=== PATIENT | male | born 1950 | race Caucasian/White ===

== ENCOUNTER 2022-08-19 15:12 | Outpatient (RCR) | payer MEDICARE, BC, SELFPAY ==
--- NOTE | 2022-08-19 18:03 | PT.OPEX ---
PT [facility] Eval PT [facility] Outpatient Eval Start: 08/19/22 12:30 Freq: Status: Active Protocol: Document 08/19/22 12:31 ENM (Rec: 08/19/22 16:11 ENM [id number]) E-signed By Leelee Astorga, DPT Physical Therapy Outpatient Evaluation Insurance Information Recert Due Date 11/11/22 Insurance Name Medicare B Medical Diagnosis unilateral primary osteoarthritis right knee presence of unspecified artificial knee joint right TKA DOS 09/02/2022 Treating Diagnosis right knee pain, impaired gait , impaired balance Referring MD Riddle Subjective Subjective Patient presents to PT for pre -operative evaluation prior to right TKA DOS 09/02/22 to be performed by . Patient is scheduled to start outpatient PT at [facility] on the . He had had knee pains for 10+ year with history of cortisone and knee injections. Knee pains vary between 3-4/10 and 7-8/10 . He stays active with biking 6-7 days week. 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 He plans to get his left knee done in the future as well. See pre-op flowsheet for additional information as to home set up. PMHx: R ankle fusion, previous L knee scope Pain Comments depends on the day 3-4/10 7-8/10 at its worse Current Work Status Retired Objective Other/Pertinent Objective Knee ROM L 0-2-110 R 0-0-108 hip ROM WFL strength: able to perform good SLR B hip flexors 5/5 B knee extensors: 4+/5 B ankle DF 5/5 B gait/balance: no overt gait deviations SLS able to hold 10s with mild difficulty bilaterally palpation/joint mobility: no significant tenderness to palpation of right knee musculature Assessment Assessment/Impression Patient is a 72 year old male presenting for pre op visit prior to R TKA on 09/02/22. He has a 10+ year history of right knee pain, plans to have his left knee done in the future as well. They will have support from their at home after surgery. Primary impairments noted on assessment were difficulty with SLS bilaterally, decreased knee ROM and right knee pain. Education was provided on use of AD, swelling management, exercises and expectations after surgery. Patient will be seen post operatively to reassess impairments that will be addressed with skilled care. Berto would greatly benefit from skilled PT to progress strength, ROM and ambulation for return to PLOF after knee replacement. Plan of Care Rehabilitation Potential Good Physical Therapy Goals After pre-op visit: ? Patient will be independent with HEP ? Patient will verbalize knowledge of stair navigation and proper sequencing ? Patient will have knowledge on home adaptations and use of assistive devices post operatively ? Patient will have knowledge of edema management Coordination/Communication With Referral Source Treatment Plan/Direct Interventions Gait Training,Manual Therapy, Neuromuscular Re-ed,Self-Care/ Home Management,Therapeutic Activities,Therapeutic Exercises Frequency/Duration 1x visit prior to surgery on . Patient scheduled to start outpatient PT in [place] s/p R TKA on 09/06. Has HEP to start with pre- operatively. Patient Will Be Discharged From Therapy Completion of LTG(s), Independent w/HEP Evaluation Billing Untimed Code Treatment Minutes 20 Complexity Low Certification Information Initial Certification Date 08/19/22 Ending Certification Date 11/11/22 Provider Signature Shows Agreement With POC & Medical Necessity Physician Signature & Date Requested Please Sign/Date Here Physician Comment/Change : Physician NPI Number #
== END 2023-03-03 23:59 | disposition home or self-care (01) ==
PROVIDERS: PCP Family Medicine; Visit Provider Orthopaedic Surgery
DX: M25.561 Pain in right knee (principal); R26.9 Unspecified abnormalities of gait and mobility; Z51.89 Encounter for other specified aftercare
CPT/HCPCS: 97110; 97161

== ENCOUNTER 2022-09-01 09:32 | Outpatient (CLI) | payer MEDICARE, BC, SELFPAY ==
[2022-09-01 14:20] LABS: SARS PCR* Negative SARS-CoV-2 (Negative)
== END 2022-09-01 09:33 | disposition home or self-care (01) ==
LOC: FBOREF 09:33
PROVIDERS: PCP Family Medicine; Visit Provider Orthopaedic Surgery
DX: Z20.822 Contact with and (suspected) exposure to COVID-19 (principal)
CPT/HCPCS: 87635

== ENCOUNTER 2022-09-10 08:36 | Day surgery (SDC) | payer MEDICARE, BC, SELFPAY ==
[2022-09-10] VITALS (25 sets, daily range): BP systolic 124–170; BP diastolic 61–98; PULSE 53–68; RESP 14–20; TEMP 36.1–36.8; O2SAT 93–99; BMI 36.1
[2022-09-10] MEDS: CEFAZOLIN 2 GM INJ IVP (08:38)
[2022-09-10] MEDS: SODIUM CHLORIDE 0.9 % (FLUSH) 10 ML SYRINGE IVF (08:50)
[2022-09-10] MEDS: LACTATED RINGERS 1000 ML 1,000 ML 100 ML IV ×2 (08:50→12:55)
[2022-09-10] MEDS: ACETAMINOPHEN 500 MG TABLET 1000 MG PO ×3 (09:00→20:24)
[2022-09-10] MEDS: CELECOXIB 200 MG CAPSULE PO ×2 (09:00→20:24)
[2022-09-10] MEDS: OXYCODONE (CR) 10 MG TAB.ER.12H PO (09:00)
[2022-09-10] MEDS: MIDAZOLAM HCL 1 MG/ML inj IVP (09:29)
[2022-09-10] MEDS: fentaNYL 100 MCG/2 ML inj IVP (09:29)
--- NOTE | 2022-09-10 09:43 | SUR.PREOP ---
TIME?OUT:?0927 PT/Lv MARIN RN/Alejandrina PAIGE, LAYLA?VERIFICATION?OF?SURGICAL?SITE,?PROCEDURE,?AND?CONSENT OBTAINED?PRIOR?TO?INVASIVE?PROCEDURE.
--- NOTE | 2022-09-10 11:42 | W.PM.NB ---
Nerve Block Nerve Block Time Seen by Provider: 09:20 Date Seen: 09/10/22 Type of block requested by surgeon for post-operative analgesia: adductor canal Side: right Time out performed: Yes Verification of patient name: Yes Verification of date of : Yes Site marking: site marked Name of person performing procedure: Alejandrina Colmenares CRNA Continuous monitoring Was continuous monitoring of O2 sat, B/P, cardiac monitor technician, recorded every 15 minutes?: Yes Procedure Checklist: sterile prep, needles and gloves Ultrasound guided. Images saved: Yes Medications given in 5ml increments after negative aspiration: Ropivicaine %: 0.5 mL: 20 Needle gauge: 20 Decadron (mg): 10 Precedex (mcg): 20 Patient tolerated procedure well: Yes Block Charges Block Charge (with Pro Fee): Femoral Nerve Use of Ultrasound Machine for Block: Yes- US Guidance/pain block
--- NOTE | 2022-09-10 12:01 | CRLHL7_ITS ---
For Patients: As a result of the Cures Act, medical imaging exams and procedure reports are released immediately into your electronic medical record. You may view this report before your referring provider. If you have questions, please contact your health care provider. INDICATION: Post right knee, Post operative total knee arthroplasty TECHNIQUE: Knee radiograph 2 views right COMPARISON: None FINDINGS: Bone: No acute fractures or aggressive bone lesions are identified. Joint: The patient is status post a total knee arthroplasty with patellar resurfacing. No significant knee effusion is seen. Soft tissue: Anterior swelling, subcutaneous gas and joint gas are present from recent surgery. No radiopaque foreign bodies are seen. IMPRESSION: 1. There is an unremarkable postoperative appearance of the knee arthroplasty. Dictated by: Jose Lopez MD @ 09/10/2022 13:28:50 (Electronically Signed)
--- NOTE | 2022-09-10 12:41 | W.ANESCHARGE ---
Anesthesia Charges Start Date/Time Anesthesia Start Date: 09/10/22 Anesthesia Start Time: 10:37 Stop Date/Time Anesthesia Stop Date: 09/10/22 Anesthesia Stop Time: 12:41 Summary Emergency: No Extremes of Age: Over 71-CPT [id number]
[2022-09-10] MEDS: HYDROmorphone 0.5 mg/0.5 ml inj IVP ×4 (15:15→22:37)
[2022-09-10] MEDS: OXYCODONE 5 MG TABLET PO ×3 (15:15→19:30)
[2022-09-10] MEDS: CEFAZOLIN 3 GM in 0.9 % SODIUM CHLORIDE 100 ml 100 ML IVPB ×2 (15:16→22:46)
--- NOTE | 2022-09-10 17:14 | P.IMCN_ITS ---
Date of Consult Patient: Najma Patient Consult date: 09/10/22 Requesting Physician: Orthopedics Primary Care Provider: Jackson Pink MD Consult Narrative Reason for consult: Postoperative support of hyperlipidemia, RICK Narrative: Berto Matthews is a 72 year old man who presents for an elective right total knee arthroplasty due to underlying severe, end-stage right knee osteoarthritis. Procedure undertaken uneventfully. No obvious immediate complications. Review of Systems Status of ROS: Reports: 10 or more systems reviewed and unremarkable except as noted in History and below Narrative: I reviewed his preoperative assessment dated 08/23/[address] Jackson Pink. Originally scheduled to undertake this surgery 1 week ago. His surgery was postponed until today. Has not taking any nonsteroidal anti-inflammatory medications now for 2 weeks. Has not had aspirin for 2 weeks. Denies chest heaviness, pressure, tightness, or pain. Denies dyspnea at rest, paroxysmal nocturnal dyspnea, orthopnea. Denies syncope or near-syncope. Denies cough, dyspnea at rest, paroxysmal nocturnal dyspnea, orthopnea. Denies palpitations or chest fluttering. Denies nausea vomiting. Denies lower extremity edema. Denies gastrointestinal or genitourinary concerns or problems. No recent trauma, injury, or travel. No recent febrile illness. Has tested negative for COVID-19 for 2 weeks in a row now. Indicates pain is well controlled at this juncture. [facility] Medical History (Updated 09/10/22 @ 17:25 by Vidal Uriarte MD) Hypercholesteremia Obstructive sleep apnea on CPAP Osteoarthritis Sleep apnea Surgical History (Updated 09/10/22 @ 17:25 by Vidal Uriarte MD) H/O arthroscopic knee surgery H/O elbow surgery (02/10/17) H/O elbow surgery (10/07/16) History of appendectomy Social History Smoking Status: Never smoker Do you use any of these nicotine containing products: None How often do you have a drink containing alcohol: 2-3 times a week Alcohol type: beer How many standard drinks containing alcohol do you have on a typical day: 1 or 2 AUDIT-C Alcohol total score: 3 Non-prescribed substance use: denies use Caffeine: Yes (coffee- 2 cups/day, diet coke 2-3 x/week) Meds Home Medications and Allergies Home Medications Medication Instructions Recorded Confirmed Type aspirin 81 mg tablet,delayed 162 mg PO DAILY 07/21/22 09/10/22 History release celecoxib 200 mg capsule 200 mg PO Q24H 07/21/22 09/10/22 History ezetimibe 10 mg tablet 10 mg PO DAILY 07/21/22 09/10/22 History fenofibrate 160 mg tablet 160 mg PO DAILY 07/21/22 09/10/22 History gabapentin 100 mg capsule 100 mg PO HS 07/21/22 09/10/22 History indomethacin 50 mg capsule 50 mg PO Q8H PRN 07/21/22 09/10/22 History calcium carbonate 500 mg-vitamin 1 tab PO DAILY 08/11/22 09/10/22 History D3 10 mcg (400 unit) tablet (Calcium 500 + D) lysine 500 mg tablet (L-Lysine) 500 mg PO BID 08/11/22 09/10/22 History Allergies Allergy/AdvReac Type Severity Reaction Status Date / Time atorvastatin Allergy Intermediate muscle Verified 09/10/22 09:04 aches Exam Narrative: Exam Narrative: Appears comfortable and in no acute distress. Alert, oriented to self, place, time, situation. Mood and affect are congruent. Friendly cooperative. Vision and hearing are grossly normal. Neck is supple. Midline trachea. Normal thyroid. No JVD, hepatojugular reflux, or carotid bruits. Lungs are clear to auscultation without wheezing, rhonchi, or rales. No CVA tenderness. Heart tones with regular rhythm, normal S1-S2, without murmur, gallop, rub. Abdomen with active bowel sounds, soft, nontender. No focal motor neurologic deficits. Const: Vital Signs, click to edit/add: Vital Signs - 24 hr 09/10/22 09:04 09/10/22 09:27 09/10/22 09:30 Temperature 97.9 F Pulse Rate 62 53 L 56 L Pulse Rate [Pulse Oximeter] Respiratory Rate 16 16 16 Blood Pressure 157/92 H 155/85 H 139/70 Blood Pressure [Le ft Arm] Pulse Oximetry 93 97 96 Oxygen Delivery Me thod Room Air Nasal Cannula Nasal Cannula Oxygen Flow Rate 2 2 09/10/22 09:35 09/10/22 12:41 09/10/22 12:55 Temperature 98.2 F Pulse Rate 57 L 63 58 L Pulse Rate [Pulse Oximeter] Respiratory Rate 14 16 16 Blood Pressure 137/65 134/64 136/69 Blood Pressure [Le ft Arm] Pulse Oximetry 96 97 99 Oxygen Delivery Me thod Nasal Cannula Nasal Cannula Nasal Cannula Oxygen Flow Rate 2 2 2 09/10/22 12:45 09/10/22 12:50 09/10/22 13:00 Temperature Pulse Rate 60 60 58 L Pulse Rate [Pulse Oximeter] Respiratory Rate 16 16 16 Blood Pressure 140/69 H 133/68 131/70 Blood Pressure [Le ft Arm] Pulse Oximetry 98 99 96 Oxygen Delivery Me thod Nasal Cannula Nasal Cannula Room Air Oxygen Flow Rate 2 2 09/10/22 13:05 09/10/22 13:09 09/10/22 13:20 Temperature 97.4 F L 97.4 F L 96.9 F L Pulse Rate 62 60 53 L Pulse Rate [Pulse Oximeter] Respiratory Rate 16 16 18 Blood Pressure 136/70 131/68 Blood Pressure [Le ft Arm] 125/61 Pulse Oximetry 94 94 Oxygen Delivery Me thod Room Air Room Air Room Air Oxygen Flow Rate 09/10/22 13:30 09/10/22 13:45 09/10/22 14:00 Temperature 96.9 F L 96.9 F L 97.1 F L Pulse Rate Pulse Rate [Pulse Oximeter] 54 L 55 L 57 L Respiratory Rate 18 16 16 Blood Pressure Blood Pressure [Le ft Arm] 125/67 124/98 H 152/70 H Pulse Oximetry 95 96 98 Oxygen Delivery Me thod Room Air Room Air Room Air Oxygen Flow Rate 09/10/22 14:15 09/10/22 15:52 09/10/22 14:45 Temperature 97.1 F L 97.5 F L Pulse Rate Pulse Rate [Pulse Oximeter] 58 L 62 Respiratory Rate 18 18 Blood Pressure Blood Pressure [Le ft Arm] 130/66 136/85 Pulse Oximetry 96 95 95 Oxygen Delivery Me thod Room Air Room Air Oxygen Flow Rate 09/10/22 15:15 Temperature 97.5 F L Pulse Rate Pulse Rate [Pulse Oximeter] 67 Respiratory Rate 18 Blood Pressure Blood Pressure [Le ft Arm] 140/76 H Pulse Oximetry 96 Oxygen Delivery Me thod Room Air Oxygen Flow Rate Documenting provider has reviewed patient's vital signs: yes Assessment and Plan Assessment and plan (1) Osteoarthritis of right knee: Problem comment: End-stage (grade 4) right knee tricompartmental osteoarthritis Status: Chronic (2) Status post right knee replacement: Status: Acute (3) Obstructive sleep apnea on CPAP: Status: Acute Plan 1. Reviewed impression with patient and . 2. Answered questions to their satisfaction. 3. Continue with CPAP at at bedtime while in hospital. 4. Agree with venous thromboembolism prophylaxis. 5. Agree with perioperative antibiotic prophylaxis. 6. Continue with supportive medications. 7. No medical contraindication for patient to be discharged home when Orthopedic surgery determines he is ready to be discharged. 8. Please let hospitalist team know if we can help in any other way.
--- NOTE | 2022-09-10 17:30 | PC.NURSE ---
Shift Summary: Patient arrived from PACU around 1320. Vitals stable, BP has increased along with pain, managed with PRN medication and cryocuff. Patient has yet to be up out of bed, denied need for bathroom. Tolerating regular diet well, denies nausea. Pain 6-910. Dressing over right knee dry and intact. Maintaining o2 sats >90% on RA.
--- NOTE | 2022-09-10 19:05 | P.ORPRC_ITS ---
Procedure Note Date of procedure: 09/10/22 Procedure: PREOPERATIVE DIAGNOSIS: Right knee osteoarthritis POSTOPERATIVE DIAGNOSIS: Right knee osteoarthritis NAME OF OPERATION: Right total knee arthroplasty SURGEON: Andrade Riddle MD LOCAL DRIVER: KETAN Packer ANESTHESIA: Spinal ESTIMATED BLOOD LOSS: 0 mL COMPLICATIONS: None SPECIMENS: None DRAINS: None PREOPERATIVE ANTIBIOTICS: Ancef 3 grams IMPLANTS: 1. J&J Attune #7 posterior stabilized femur 2. #8 fixed-bearing tibia 3. #7 posterior stabilized, 5 mm fixed-bearing polyethylene 4. 41 patella INDICATIONS: The patient is a 72-year-old with a longstanding history of severe, unrelenting right knee pain secondary to end-stage (grade IV) right knee osteoarthritis. Despite appropriate nonoperative management, including activity modification, anti-inflammatories, vspt-wfi-talpuyo pain medication, bracing, physical therapy, and injections they continue to have pain and disability. Operative intervention was offered. The risks, benefits and expected outcomes were discussed in detail. These included but were not limited to: Infection, bleeding, injury to blood vessel or nerve, venous thromboembolism. All questions were answered to their satisfaction. Use of an nursing home assistant administrator was necessary throughout the case for patient positioning and safety, soft tissue retraction, and closure. PROCEDURE: Spinal anesthesia was administered. The patient was placed supine on the operating table. The nursing home assistant administrator made sure the patient was positioned appropriately. The lower extremity was prepped and draped in the usual sterile fashion. The limb was exsanguinated with the Franck bandage. The pneumatic tourniquet was inflated to 300 mmHg. A standard anterior incision was made with the knee in flexion. Subcutaneous dissection was sharply taken through fascial layer #1. Full-thickness medial and lateral flaps were elevated. The nursing home assistant administrator retracted the soft tissues and protected them throughout the case. A standard medial parapatellar approach was made. The patella was everted. The infrapatellar fat pad was preserved. The menisci and cruciate ligaments were sharply d?brided. Marginal osteophytes were d?brided with the rongeur. The drill was used to penetrate the femoral canal. The canal was aspirated and irrigated with pulse lavage. The intramedullary femoral guide was placed for a 5-degree valgus cut, removing 10 mm off the distal femur. The saw was used to make the cut. Whitesides line and the trans epicondylar axis were marked. The femoral sizing guide was pinned onto the distal femur. Three degrees of external rotation nicely parallels the transepicondylar axis. Pins were placed for posterior referencing. The four-in-one cutting guide was pinned onto the distal femur. The anterior, posterior, and chamfer cuts were made. The nursing home assistant administrator protected the collateral ligaments. The box cutting guide was pinned. The box cuts were made. The boxed trial was placed and was an excellent fit. Drill holes for the lugs were made. Attention was then turned to the proximal tibia. The extramedullary tibial guide was placed for a neutral varus/valgus cut with 5 degrees of posterior slope, removing 2 mm based off the medial tibial surface. The nursing home assistant administrator protected the collateral ligaments and the neurovascular bundle. The saw was used to make the cut. Trial components were placed. The knee was nicely balanced in both flexion and extension. The trial components were removed. The tray was placed in appropriate rotation, parallel to our tibial cutting pins. It was pinned by the nursing home assistant administrator and the drill and the punch were used. The tray was removed. The punch was used again. We placed a bone plug in the femoral canal. Attention was then turned to the patella. [place] patellar thickness was 24 mm. The lobster claw resection guide was used with the 9.5 mm celine. The saw was used to make the cut. Drill holes were made by the nursing home assistant administrator. The trial was placed and was an excellent fit. Cancellous surfaces were irrigated with pulse lavage and thoroughly dried by the nursing home assistant administrator. We cemented the tibial component, then the femoral component. We impacted the 5 mm polyethylene onto the tibial tray. The knee was brought into full extension. We then cemented the patellar component. Excessive cement was removed. The cement was allowed to harden. The knee was taken through a range of motion and was found to be nicely balanced in both flexion and extension. The patella tracks centrally. The nursing home assistant administrator did a three minute dilute Betadine solution soak. The nursing home assistant administrator irrigated the wound with 3 liters of normal saline via pulse lavage. The nursing home assistant administrator reapproximated the extensor mechanism with #1 Vicryl in an interrupted [id number]-ch-lgolh fashion. The nursing home assistant administrator then ran the extensor mechanism with a #1 PDO Stratafix. The nursing home assistant administrator closed the subcutaneous tissues with a 3-0 Stratafix and the skin with a running 3-0 Stratafix in a subcuticular fashion. Glue was used to seal the skin. The nursing home assistant administrator placed a dry dressing, SIMON stocking, and Polar Care. Sponge and needle counts were correct x2. The patient tolerated the procedure well. There were no apparent complications. They were carefully transferred to the hospital bed and taken to the postanesthesia care unit in satisfactory condition. PLAN: The patient will be mobilized with physical therapy. Aspirin will be used for DVT prophylaxis. They will be discharged to home once medically appropriate.
[2022-09-10] MEDS: GABAPENTIN 100 MG CAPSULE PO (20:23)
[2022-09-10] MEDS: ASPIRIN 81 MG TABLET EC PO (20:25)
[2022-09-10] MEDS: SENNOSIDES 1 TAB TABLET 2 TAB PO (20:25)
[2022-09-11 03:00] VITALS: BP 166/83; PULSE 62; RESP 18; TEMP 36.6; O2SAT 93
[2022-09-11] MEDS: HYDROmorphone 0.5 mg/0.5 ml inj IVP ×2 (03:02→08:07)
[2022-09-11] MEDS: ACETAMINOPHEN 500 MG TABLET 1000 MG PO ×2 (03:07→09:35)
--- NOTE | 2022-09-11 06:12 | PC.NURSE ---
VSS on RA. Patient is alert and oriented x3. Patient had pain throughout this shift. Pt consistently rated pain as 8-9/10. Per pt, Oxycodone is not helping him at all. Only Dilaudid that is somewhat effective. Pt is continent of bowel and bladder, using urinal at bedside. Requires assist of one with transfers. Pt appears stable, call light within reach. Will call appropriately.
[2022-09-11] MEDS: CEFAZOLIN 3 GM in 0.9 % SODIUM CHLORIDE 100 ml 100 ML IVPB (07:08)
[2022-09-11] MEDS: OXYCODONE 5 MG TABLET PO ×2 (07:08→11:02)
[2022-09-11 07:21] LABS: Basophils Percent Auto 0.1 % (0.0-3.0); Eosinophils Percent Auto 0.1 % (0.0-7.0); Hematocrit 40.2 % (37.0-53.0); Hemoglobin* 13.7 gm/dL (13.5-17.5); Immature Granulocytes Pct Auto 0.3 %; Lymphocytes Percent Auto 7.8 % (20-44); Mean Corpuscular HGB Conc 34 gm/dL (32-36); Mean Corpuscular Hemoglobin 32 pg (26-34); Mean Corpuscular Volume 93 fL (80-100); Monocytes Percent Auto 9.7 % (0.0-11.0); Platelet Count* 216 K/uL (140-440); RDW Coefficient of Variation % 12.8 % (11.5-15.5); Red Blood Count 4.31 m/uL (4.30-5.90)
[2022-09-11 07:29] LABS: Slide Review Reflex No
[2022-09-11 07:35] LABS: Potassium* 4.1 mmol/L (3.6-5.1); Sodium* 136 mmol/L (135-149)
[2022-09-11 07:36] LABS: INR 1.07 (0.91-1.10); Prothrombin Time 14.5 Seconds
[2022-09-11 07:38] LABS: Blood Urea Nitrogen* 24 mg/dL (7-30); Creatinine* 0.8 mg/dL (0.5-1.5); Est. Creatinine Clearance* 74.37; Estimated Glomerular Filt Rate 95 ml/min
[2022-09-11 08:13] VITALS: O2SAT 96
[2022-09-11 08:14] VITALS: BP 160/77; PULSE 61; RESP 18; TEMP 36.4; O2SAT 96
[2022-09-11] MEDS: CELECOXIB 200 MG CAPSULE PO (09:34)
[2022-09-11] MEDS: SENNOSIDES 1 TAB TABLET 2 TAB PO (09:34)
[2022-09-11] MEDS: FENOFIBRATE 145 MG TABLET PO (09:36)
[2022-09-11] MEDS: EZETIMIBE 10 MG TABLET PO (09:36)
[2022-09-11] MEDS: ASPIRIN 81 MG TABLET EC PO (09:36)
--- NOTE | 2022-09-11 11:48 | P.ORPN_ITS ---
Subjective Subjective Time Seen by Provider: 11:48 Date Seen: 09/11/22 Principal diagnosis: Status post right knee replacement Interval history: Berto is comfortable at the moment. He is dressed and ready to discharge to home. He has had flares of pain since surgery. He has had oxycodone after previous surgeries and works well for him. Will continue this for at home use. He has stool softener at home, Tylenol at home. Ortho Exam Narrative Exam Narrative: Alert and oriented x3. Patient is in no acute distress. Converses without la bored breathing. Hearing is grossly intact. Ambulates with a walker. Examination the right lower extremity shows bilateral calves are soft and nontender. CMS intact right lower extremity. Dressing is intact. Mild effusion. Mild soft tissue edema about the knee. Const Vital Signs, click to edit/add: Vital Signs - 24 hr 09/10/22 12:41 09/10/22 12:55 09/10/22 12:45 Temperature 98.2 F Pulse Rate 63 58 L 60 Pulse Rate [Pulse Oximeter] Respiratory Rate 16 16 16 Blood Pressure 134/64 136/69 140/69 H Blood Pressure [Left Arm] Pulse Oximetry 97 99 98 Oxygen Delivery Method Nasal Cannula Nasal Cannula Nasal Cannula Oxygen Flow Rate 2 2 2 09/10/22 12:50 09/10/22 13:00 09/10/22 13:05 Temperature 97.4 F L Pulse Rate 60 58 L 62 Pulse Rate [Pulse Oximeter] Respiratory Rate 16 16 16 Blood Pressure 133/68 131/70 136/70 Blood Pressure [Left Arm] Pulse Oximetry 99 96 94 Oxygen Delivery Method Nasal Cannula Room Air Room Air Oxygen Flow Rate 2 09/10/22 13:09 09/10/22 13:20 09/10/22 13:30 Temperature 97.4 F L 96.9 F L 96.9 F L Pulse Rate 60 53 L Pulse Rate [Pulse Oximeter] 54 L Respiratory Rate 16 18 18 Blood Pressure 131/68 Blood Pressure [Left Arm] 125/61 125/67 Pulse Oximetry 94 95 Oxygen Delivery Method Room Air Room Air Room Air Oxygen Flow Rate 09/10/22 13:45 09/10/22 14:00 09/10/22 14:15 Temperature 96.9 F L 97.1 F L 97.1 F L Pulse Rate Pulse Rate [Pulse Oximeter] 55 L 57 L 58 L Respiratory Rate 16 16 18 Blood Pressure Blood Pressure [Left Arm] 124/98 H 152/70 H 130/66 Pulse Oximetry 96 98 96 Oxygen Delivery Method Room Air Room Air Room Air Oxygen Flow Rate 09/10/22 15:52 09/10/22 14:45 09/10/22 15:15 Temperature 97.5 F L 97.5 F L Pulse Rate Pulse Rate [Pulse Oximeter] 62 67 Respiratory Rate 18 18 Blood Pressure Blood Pressure [Left Arm] 136/85 140/76 H Pulse Oximetry 95 95 96 Oxygen Delivery Method Room Air Room Air Oxygen Flow Rate 09/10/22 16:00 09/10/22 17:00 09/10/22 18:00 Temperature 97.4 F L 97.4 F L 97.3 F L Pulse Rate Pulse Rate [Pulse Oximeter] 65 67 68 Respiratory Rate 20 20 18 Blood Pressure Blood Pressure [Left Arm] 162/82 H 170/81 H 167/81 H Pulse Oximetry 94 94 94 Oxygen Delivery Method Room Air Room Air Room Air Oxygen Flow Rate 09/10/22 19:34 09/10/22 19:00 09/10/22 23:00 Temperature 97.6 F 97.6 F 97.5 F L Pulse Rate Pulse Rate [Pulse Oximeter] 66 66 64 Respiratory Rate 18 18 18 Blood Pressure Blood Pressure [Left Arm] 146/66 H 141/66 H 166/77 H Pulse Oximetry 94 94 93 Oxygen Delivery Method Room Air Room Air Room Air Oxygen Flow Rate 09/10/22 23:00 09/10/22 23:00 09/11/22 03:00 Temperature 97.9 F Pulse Rate Pulse Rate [Pulse Oximeter] 64 62 Respiratory Rate 18 18 Blood Pressure Blood Pressure [Left Arm] 166/83 H Pulse Oximetry 94 93 Oxygen Delivery Method Room Air CPAP Oxygen Flow Rate 09/11/22 08:13 09/11/22 08:14 Temperature 97.6 F Pulse Rate Pulse Rate [Pulse Oximeter] 61 Respiratory Rate 18 Blood Pressure Blood Pressure [Left Arm] 160/77 H Pulse Oximetry 96 96 Oxygen Delivery Method Room Air Oxygen Flow Rate Assessment and Plan Assessment and plan (1) Osteoarthritis of right knee: Problem details: End-stage (grade 4) right knee tricompartmental osteoarthritis Status: Chronic (2) Status post right knee replacement: Problem details: 09/10/2022 Status: Acute Assessment and Plan: Plan for discharge is today to home if they meet discharge criteria. DVT prophylaxis includes aspirin 81 mg twice daily x1 month, Anjel stockings x1 month may remove for 1 hr per day, frequent ambulation Remove dressing in 1 week. Observe wound and phone Orthopedics with any questions or concerns Return to clinic in 1 week for a wound check Return to clinic in [address] Riddle Minimize narcotic use. Wean off and discontinue soon as possible. Activities as tolerated. No strenuous activity. Outpatient physical therapy as scheduled. Ice and elevate the operative extremity. No restriction on ice. (3) Obstructive sleep apnea on CPAP: Status: Acute
[2022-09-11 12:37] VITALS: BP 131/68; PULSE 53; RESP 18; TEMP 36.4
== END 2022-09-11 12:30 | disposition home or self-care (01) ==
LOC: OR 08:38 → MEDSURG 08:52
PROVIDERS: PCP Family Medicine; Visit Provider Orthopaedic Surgery
PROC: (CPT 27447; principal; 2022-09-10 10:15)
DX: M17.11 Unilateral primary osteoarthritis, right knee (principal); G89.18 Other acute postprocedural pain; M25.561 Pain in right knee; G47.33 Obstructive sleep apnea (adult) (pediatric); Z99.89 Dependence on other enabling machines and devices; E78.5 Hyperlipidemia, unspecified
CPT/HCPCS: 27447; 01402; 36415; 64447; 73560; 76942; 82565; 84132; 84295; 84520; 85025; 85610; 97110; 97116; 97161; 97165; 97530; 97535; 99100; A9270; C1776; J0690; J1100; J1170; J2250; J2405; J2704; J2795; J3010; J7120

== ENCOUNTER 2022-09-12 18:48 | Emergency (ER) | payer MEDICARE, BC, SELFPAY ==
[2022-09-12 18:50] VITALS: BP 163/77; PULSE 72; RESP 14; TEMP 37.1; O2SAT 93; BMI 35.3
--- NOTE | 2022-09-12 18:55 | ED.GENADULT ---
HPI - General Adult General Time Seen by Provider: 18:56 Date Seen: 09/12/22 Chief complaint: Post Op Complication Stated complaint: post op right knee pain Time Seen by Provider: 09/12/22 18:55 Source: patient, family and old records reviewed Mode of arrival: ambulatory Limitations: no limitations History of Present Illness HPI narrative: 72-year-old male who is postop day 2 status post right total knee replacement, presents with knee pain. Patient went home yesterday Related Data Home Medications Medication Instructions Recorded Confirmed aspirin 81 mg tablet,delayed 162 mg PO DAILY 07/21/22 09/10/22 release ezetimibe 10 mg tablet 10 mg PO DAILY 07/21/22 09/10/22 fenofibrate 160 mg tablet 160 mg PO DAILY 07/21/22 09/10/22 gabapentin 100 mg capsule 100 mg PO HS 07/21/22 09/10/22 indomethacin 50 mg capsule 50 mg PO Q8H PRN 07/21/22 09/10/22 calcium carbonate 500 mg-vitamin 1 tab PO DAILY 08/11/22 09/10/22 D3 10 mcg (400 unit) tablet (Calcium 500 + D) lysine 500 mg tablet (L-Lysine) 500 mg PO BID 08/11/22 09/10/22 Previous Rx's Medication Instructions Recorded aspirin 81 mg chewable tablet 81 mg PO BID for DVT prophylaxis 09/11/22 (Aspirin Childrens) 30 days #60 tabs oxycodone 5 mg tablet 2.5 - 5 mg PO Q4-6H PRN Pain #42 09/11/22 tabs Allergies Allergy/AdvReac Type Severity Reaction Status Date / Time atorvastatin Allergy Intermediate muscle Verified 09/10/22 09:04 aches PFSH PFSH Medical History (Updated 09/10/22 @ 17:25 by Vidal Uriarte MD) Hypercholesteremia Obstructive sleep apnea on CPAP Osteoarthritis Sleep apnea Surgical History (Updated 09/11/22 @ 11:50 by Mary Anne Flores PA-C) H/O arthroscopic knee surgery H/O elbow surgery (02/10/17) H/O elbow surgery (10/07/16) History of appendectomy Social History Smoking Status: Never smoker Do you use any of these nicotine containing products: None How often do you have a drink containing alcohol: 2-3 times a week Alcohol type: beer How many standard drinks containing alcohol do you have on a typical day: 1 or 2 AUDIT-C Alcohol total score: 3 Non-prescribed substance use: denies use Caffeine: Yes (coffee- 2 cups/day, diet coke 2-3 x/week) Discharge Plan Discharge Prescriptions: No Action ezetimibe 10 mg tablet 10 mg PO DAILY Label Comments: TAKE ONE TABLET BY MOUTH EVERY DAY fenofibrate 160 mg tablet 160 mg PO DAILY Label Comments: TAKE ONE TABLET BY MOUTH EVERY DAY WITH A MEAL aspirin 81 mg tablet,delayed release (DR/EC) 162 mg PO DAILY Hold Instructions: Resume on 10/12/22. Hold while taking aspirin per the orthopedic surgeon instructions for the next month. indomethacin 50 mg capsule 50 mg PO Q8H PRN Label Comments: TAKE ONE CAPSULE BY MOUTH EVERY 8 HOURS NEEDED FOR PAIN gabapentin 100 mg capsule 100 mg PO HS Label Comments: TAKE ONE CAPSULE BY MOUTH AT BEDTIME lysine [L-Lysine] 500 mg tablet 500 mg PO BID calcium carbonate-vitamin D3 [Calcium 500 + D] 500 mg-10 mcg (400 unit) tablet 1 tab PO DAILY oxycodone 5 mg Tablet 2.5 - 5 mg PO Q4-6H MDD 6 tabs per day PRN (Reason: Pain) Qty: 42 0RF Rx Instructions: Minimize. Discontinue as soon as possible aspirin [Aspirin Childrens] 81 mg tablet,chewable 81 mg PO BID 30 Days Qty: 60 0RF Follow Up/Referrals: Jackson Pink MD [Primary Care Provider] -
--- NOTE | 2022-09-12 19:14 | CRLHL7_ITS ---
For Patients: As a result of the Cures Act, medical imaging exams and procedure reports are released immediately into your electronic medical record. You may view this report before your referring provider. If you have questions, please contact your health care provider. Indication: Postop pain Technique: Two views right knee Comparison: X-rays 09/10/2022 Findings: Right knee arthroplasty in satisfactory position anterior postoperative soft tissue fluid and edema. Probable small effusion. No acute fractures or acute osseous abnormalities. Dictated by Deloris Edwards MD @ 09/12/2022 7:54:26 PM (Electronically Signed)
[2022-09-12 19:53] VITALS: BP 134/78; PULSE 72; RESP 14; O2SAT 96
--- NOTE | 2022-09-12 20:17 | ED_ITS ---
HPI - General Adult General Date Seen: 09/12/22 Chief complaint: Post Op Complication Stated complaint: post op right knee pain Time Seen by Provider: 09/12/22 18:55 Source: patient and EMS Mode of arrival: EMS Limitations: no limitations History of Present Illness HPI narrative: Patient is 72-year-old gentleman who presents here with acute postoperative knee pain. He notes that the pain came on after he was doing quite well at home, he was discharged from the hospital yesterday, he had an uneventful right total knee arthroplasty done, says the block wore off in approximately 4 hours. He then has been taking oxycodone. He went today to do some exercises, that they had instructed with him, noted pain and just above his knee, that was the worst pain of his life. The paramedics arrived, they gave him 1 mg IV of Dilaudid, his pain went away promptly. He came to the emergency department for further assessment. Denies any fevers chills or sweats there is no history of falls or injury. Denies any numbness tingling or weakness. Related Data Home Medications Medication Instructions Recorded Confirmed aspirin 81 mg tablet,delayed 162 mg PO DAILY 07/21/22 09/10/22 release ezetimibe 10 mg tablet 10 mg PO DAILY 07/21/22 09/10/22 fenofibrate 160 mg tablet 160 mg PO DAILY 07/21/22 09/10/22 gabapentin 100 mg capsule 100 mg PO HS 07/21/22 09/10/22 indomethacin 50 mg capsule 50 mg PO Q8H PRN 07/21/22 09/10/22 calcium carbonate 500 mg-vitamin 1 tab PO DAILY 08/11/22 09/10/22 D3 10 mcg (400 unit) tablet (Calcium 500 + D) lysine 500 mg tablet (L-Lysine) 500 mg PO BID 08/11/22 09/10/22 Previous Rx's Medication Instructions Recorded aspirin 81 mg chewable tablet 81 mg PO BID for DVT prophylaxis 09/11/22 (Aspirin Childrens) 30 days #60 tabs oxycodone 5 mg tablet 2.5 - 5 mg PO Q4-6H PRN Pain #42 09/11/22 tabs Allergies Allergy/AdvReac Type Severity Reaction Status Date / Time atorvastatin Allergy Intermediate muscle Verified 09/10/22 09:04 aches Review of Systems Status of ROS: Reports: 10 or more systems reviewed and unremarkable except as noted in History and below PFSH PFS Medical History Hypercholesteremia Obstructive sleep apnea on CPAP Osteoarthritis Sleep apnea Surgical History H/O arthroscopic knee surgery H/O elbow surgery (02/10/17) H/O elbow surgery (10/07/16) History of appendectomy Social History Smoking Status: Never smoker Do you use any of these nicotine containing products: None How often do you have a drink containing alcohol: 2-3 times a week Alcohol type: beer How many standard drinks containing alcohol do you have on a typical day: 1 or 2 AUDIT-C Alcohol total score: 3 Non-prescribed substance use: denies use Caffeine: Yes (coffee- 2 cups/day, diet coke 2-3 x/week) Exam Narrative: Exam Narrative: On examination his right knee is swollen, which is not atypical or expected after he has had a knee arthroplasty. He still has the bandage across his knee, he has range of motion from approximately 10? to 30?. Without pain. The lower leg shows a bruising, notable and normal after surgery. His DP and posterior tibial pulses are very palpable in his right knee leg. He is warm, as is his leg. Const: Vital Signs, click to edit/add: Vital Signs - 24 hr 09/12/22 18:50 Temperature 98.7 F Pulse Rate [Pulse Oximeter] 72 Respiratory Rate 14 Blood Pressure [Ri ght Upper Arm] 163/77 H Pulse Oximetry 93 Oxygen Delivery Me thod Room Air Documenting provider has reviewed patient's vital signs: yes Course Course Hospital Course: I spoke to the patient along with the orthopedic PA was familiar with the case. She talked to the patient on the phone, I think more regular pain medication, can avoid this spasm, I see no internal issue occur associated with knee, I do not think this is infection, I do not think this is clot, and I think given the fact he is back to baseline now, has to do with the pain. I think we can discharge him home at this point, Vital Signs Vital signs: Initial Vital Signs Temperature 98.7 F 09/12/22 18:50 Temperature Source Temporal Artery Scan 09/12/22 18:50 Pulse Rate 72 09/12/22 18:50 Pulse Rhythm 09/12/22 18:50 Respiratory Rate 14 09/12/22 18:50 Blood Pressure 163/77 H 09/12/22 18:50 Blood Pressure Mean 105 09/12/22 18:50 Blood Pressure Position Supine 09/12/22 18:50 Pulse Oximetry 93 09/12/22 18:50 Oxygen Delivery Method 09/12/22 18:50 Vital Signs Temperature 98.7 F 09/12/22 18:50 Pulse Rate 72 09/12/22 18:50 Respiratory Rate 14 09/12/22 18:50 Blood Pressure 163/77 H 09/12/22 18:50 Pulse Oximetry 93 09/12/22 18:50 Oxygen Delivery Method 09/12/22 18:50 Temperature 98.7 F 09/12/22 18:50 Pulse Rate 72 09/12/22 18:50 Respiratory Rate 14 09/12/22 18:50 Blood Pressure 163/77 H 09/12/22 18:50 Pulse Oximetry 93 09/12/22 18:50 Oxygen Delivery Method 09/12/22 18:50 Discharge Plan Discharge Clinical Impression: Acute postoperative pain of right knee Patient Disposition: Home w/ Parent or Adult Condition: Stable Instructions: Pain Management (ED), Narcotic Safety (ED), Knee Pain (ED), Opioid Safety (ED), Pain Management After Surgery (DC) Additional Instructions: Take the oxycodone regularly, please use other medications as directed, usual cooling apparatus if you do indeed have one. I do not see any obvious issues associated with knee surgery, I believe you having postoperative muscle spasm. Prescriptions: No Action ezetimibe 10 mg tablet 10 mg PO DAILY Label Comments: TAKE ONE TABLET BY MOUTH EVERY DAY fenofibrate 160 mg tablet 160 mg PO DAILY Label Comments: TAKE ONE TABLET BY MOUTH EVERY DAY WITH A MEAL aspirin 81 mg tablet,delayed release (DR/EC) 162 mg PO DAILY Hold Instructions: Resume on 10/12/22. Hold while taking aspirin per the orthopedic surgeon instructions for the next month. indomethacin 50 mg capsule 50 mg PO Q8H PRN Label Comments: TAKE ONE CAPSULE BY MOUTH EVERY 8 HOURS NEEDED FOR PAIN gabapentin 100 mg capsule 100 mg PO HS Label Comments: TAKE ONE CAPSULE BY MOUTH AT BEDTIME lysine [L-Lysine] 500 mg tablet 500 mg PO BID calcium carbonate-vitamin D3 [Calcium 500 + D] 500 mg-10 mcg (400 unit) tablet 1 tab PO DAILY oxycodone 5 mg Tablet 2.5 - 5 mg PO Q4-6H MDD 6 tabs per day PRN (Reason: Pain) Qty: 42 0RF Rx Instructions: Minimize. Discontinue as soon as possible aspirin [Aspirin Childrens] 81 mg tablet,chewable 81 mg PO BID 30 Days Qty: 60 0RF Follow Up/Referrals: Jackson Pink MD [Primary Care Provider] - Stand Alone Forms: [employer] Info Instructions
[2022-09-12] MEDS: HYDROmorphone 0.5 mg/0.5 ml inj IVP (20:46)
[2022-09-12 20:57] VITALS: BP 141/74; PULSE 72; RESP 14; TEMP 37.1
== END 2022-09-12 20:50 | disposition home or self-care (01) ==
PROVIDERS: Emergency Provider Family Medicine; PCP Family Medicine
DX: G89.18 Other acute postprocedural pain (principal); Z96.651 Presence of right artificial knee joint
CPT/HCPCS: 73560; 96374; 99283; J1170

== ENCOUNTER 2022-09-15 09:54 | Outpatient (CLI) | payer MEDICARE, BC, SELFPAY ==
--- NOTE | 2022-09-15 10:15 | CRLHL7_ITS ---
For Patients: As a result of the Cures Act, medical imaging exams and procedure reports are released immediately into your electronic medical record. You may view this report before your referring provider. If you have questions, please contact your health care provider. INDICATION: Right calf pain and swelling. Right TKA 09/10/2022. COMPARISON: None available. FINDINGS: Ultrasound of the venous drainage of the right lower extremity shows no evidence of deep venous thrombosis. There is normal antegrade flow from the posterior tibial and popliteal veins superiorly through the common femoral vein. There is normal augmentation and compressibility of these veins. The left common femoral vein is widely patent. IMPRESSION: No evidence of right lower extremity deep venous thrombosis. Dictated by Atilio Roth MD @ 09/15/2022 10:45:21 AM (Electronically Signed)
== END 2022-09-15 09:55 | disposition home or self-care (01) ==
LOC: US 09:56
PROVIDERS: PCP Family Medicine; Visit Provider Physician Assistant
DX: M79.661 Pain in right lower leg (principal); R22.41 Localized swelling, mass and lump, right lower limb
CPT/HCPCS: 93971

== ENCOUNTER 2023-09-08 07:26 | Day surgery (SDC) | payer MEDICARE, BC, SELFPAY ==
[2023-09-08] VITALS (21 sets, daily range): BP systolic 140–180; BP diastolic 75–101; PULSE 54–73; RESP 14–20; TEMP 35.9–36.7; O2SAT 94–97; BMI 37.8
--- OUTSIDE RECORDS SUMMARY | 2023-09-08 07:32 | XMS_ITS | Clinical Summary ---
Author Name Unknown Organization [employer] [facility] Address [place], [place] [address] Care Team Providers Care Sales Service Executive Name Role Phone Jackson Pink MD Primary Care Provider Allergies Active Allergy Reactions Criticality Noted Date Comments Atorvastatin Myalgia High muscle pain Bbvzcfy-Qzg-Krn Reductase Inhibitors Muscle Weakness High 11/15/2012 Muscle pain Medications Medication Sig Dispensed Refills Start Date End Date Status ASPIRIN 81 MG TAB, DELAYED RELEASEIndications:Mi xed hyperlipidemia 2 Once daily 0 06/05/2008 Acti ve CPAPIndications:RICK on CPAP CPAP machine for home use at pressure: +4-12cm , Heated humidifier x 1, Humidifier chamber x 1, Full face mask with cushion x 1 every 3 months, full face mask cushion 1 x every month, Heated tubing x 1 every 3 months, Headgear x 1 every 6 months, Filters: Disposable x 2 per month & Reusable x 1 per 6 months, Length of Need: 99 months, Frequency of use: Daily 1 Device 11 11/27/2019 Active lysine 500 mg tab Take 500 mg by mouth 2 times daily with meals. 0 Active calcium carbonate/vitamin D3 (CALCIUM 500 + D ORAL) Take by mouth. 0 Active NIACIN CR ORAL Take by mouth. 0 Active ezetimibe (Zetia) 10 mg tabletIndications:Mix ed hyperlipidemia Take 1 Tablet (10 mg) by mouth once daily. 90 Tablet 10/18/2022 Active fenofibrate 160 mg tabletIndications:Mix ed hyperlipidemia Take 1 Tablet (160 mg) by mouth once daily with a meal. 90 Tablet 10/18/2022 Active gabapentin (NEURONTIN) 100 mg capsuleIndications:No cturnal leg cramps Take 1 Capsule (100 mg) by mouth at bedtime. 90 Capsule 10/18/2022 Active sildenafil citrate (Viagra) 100 mg tabletIndications:Ere ctile dysfunction, unspecified erectile dysfunction type Take 1 Tablet (100 mg) by mouth once daily if needed for Erectile Dysfunction. Take 30min to 4 hours before sexual activity. Max 100mg/24hr. 30 Tablet 6 10/18/2022 Active indomethacin (INDOCIN) 50 mg capsuleIndications:Fi nger pain, right Take 1 Capsule (50 mg) by mouth every 8 hours if needed for Pain. 90 Capsule 10/18/2022 Active tamsulosin (FLOMAX) 0.4 mg capsuleIndications:No cturia Take 1 Capsule (0.4 mg) by mouth once daily after a meal. 90 Capsule 3 10/18/2022 Active celecoxib (CELEBREX) 200 mg capsuleIndications:No cturnal leg cramps TAKE ONE CAPSULE BY MOUTH EVERY DAY WITH A MEAL 90 Capsule 2 01/06/2023 Active ofloxacin 0.3 % ophthalmic (OCUFLOX) 0.3 % ophthalmic solutionIndications:A cute bacterial conjunctivitis of both eyes Place 2 Drops into both eyes four times daily. 10 mL 0 01/14/2023 Active Active Problems Problem Noted Date Diagnosed Date ACP (advance care planning) 12/17/2020 Overview: Health Care Directive completed and scanned. See document dated 11/16/2020. Erectile dysfunction 12/16/2014 Tubular adenoma of colon 10/11/2014 RICK 07/28/2011 AHI-36 08/02/2011 Benign neoplasm of colon 03/16/2010 Overview: Colonoscopy 02/2010 polyp repeat in 5 years Colonoscopy 04/2015 polyp repeat in 5 years Sensorineural hearing loss, bilateral 09/03/2008 Overview: asymmetric Bilateral tinnitus 09/03/2008 DJD (degenerative joint disease) of knee 008 Mixed hyperlipidemia 05/24/2007 Obesity, unspecified 05/24/2007 Encounters Date Type Department Care Team Description 08/26/2023 10:50 AM BOWLING FLOOR DESK CLERK Preop Visit [address] [address] Jackson Pink MD Pre-Op Exam (09/08/2023) 08/26/2023 Orders Only [address] [place] [address] Jackson Pink MD 1 scan: (1-Ord) 08/26/2023 08/26/2023 Travel 08/01/2023 [address] [address] Jackson Pink MD Form 07/20/2023 Transcribe Orders [facility] - [place] [address] [address] [address] Andrade Riddle MD 06/08/2023 1:45 PM CDT Nurse/Clinic Staff Only [address] [id number] Immunization/Inject ion 06/08/2023 Travel from Last 3 Months Immunizations Name Administration Dates Next Due AMB Influenza, IIV3 (Age >=3 years) Preserve Free (Flu Clinic Only) 05/29/2013 AMB Influenza, IIV4 PF (=>6 mos Flulaval,Fluzone Fluarix)(Flu Clinic Only) 05/27/2014 COVID-19 Vaccine Spikevax (M oderna 50mcg/0.5mL) 12YO+ [id number] Formula PF 06/08/2023 COVID-19 vaccine (Pfizer-Bio NTech 30mcg/0.3mL) 12YO+ BIVALENT PF, MDV 08/23/2022 COVID-19 vaccine (Pfizer-Bio NTech 30mcg/0.3mL) 12YO+ DEBRA-SUCROSE PF, MDV 03/02/2022 COVID-19 vaccine (paraBebes.com-Bio NTech 30mcg/0.3mL) PF, MDV 05/26/2021,11/08/2020,10/18/2020 Influenza A (H1N1), Inactivated 09/03/2009 Influenza, High-dose Inactivated 05/15/2020,04/16,05/12/2017 Influenza, IIV3 (Age >=3 years) 05/15/2015,06/05,05/24/2007 Influenza, Inactivated AIIV4 (Age 65+ Years) Preserv Free 05/04/2023,04/29/2022,04/30/2021,2019 Influenza, Inactivated IIV3 (Age 65+ Years) Preserv Free 06/09/2018 Pneumococcal Poly,23-Valent (Pneumovax) 09/16/2017 Pneumococcal conj 13-Valent (Prevnar 13) 08/23/2016 Td (Age >=7 Years) 08/23/2022 Td, Preservative Free (age > = 7 Years) 03/16/2005 Tdap 07/28/2012 Zoster (Shingrix-RZV, recombinant) 03/02/2022, Zoster (Zostavax-ZVL, live) 07/14/2011 Family History Medical History Relation Name Comments Cancer Father penile Other Father d 82 pulmonary fibrosis Stroke Maternal Grandmother 54 yo Good Health Mother b 1930 Cancer-prostate Paternal Uncle 1 dad's id entical twin Cancer Paternal Uncle 2 penile Hyperlipidemia Sister Relation Name Status Comments Father Maternal Grandmother Mother Paternal Uncle 1 Paternal Uncle 2 Sister Social History Tobacco Use Types Packs/Day Years Used Date Smoking Tobacco: Never Smokeless Tobacco: Never Tobacco Cessation:Counseling Given: Not Answered Alcohol Use Standard Drinks/Week Comments Not Currently 0 (1 standard drink = 0.6 oz pur e alcohol) occasionally beer PHQ-2 Answer Date Recorded PHQ-2 TOTAL SCORE 0 10/18/2022 Social Connections Answer Date Recorded Frequency of Communication with Friends and Fami ly Not on file 04/15/2023 Financial Resource Strain Answer Date R ecorded Difficulty of Paying Living Expenses 3 04/11/2022 Difficulty of Paying Living Expenses Not on file 04/11/2022 Food Insecurity Answer Date Recorded Worried About Running Out of Food in the Last Ye ar 1 04/11/2022 Transportation Needs Answer Date Record ed Lack of Transportation (Medical) 1 04/11/2022 Housing Stability Answer Date Recorded Unable to Pay for Housing in the Last Year 1 04/11/2022 Sex and Gender Information Value Date Recorded Sex Assigned at Not on file Gender Identity Not on file Sexual Orientation Not on file Obstetrics History Last Filed Vital Signs Vital Sign Reading Time Taken Comments Blood Pressure 142/68 08/26/2023 11:08 AM BOWLING FLOOR DESK CLERK Pulse 55 08/26/2023 11:08 AM BOWLING FLOOR DESK CLERK Temperature 37 ??C (98.6 ??F) 08/26/2023 11:08 AM BOWLING FLOOR DESK CLERK Respiratory Rate 18 01/14/2023 5:22 PM CDT Oxygen Saturation 96% 08/26/2023 11:08 AM BOWLING FLOOR DESK CLERK Inhaled Oxygen Concentration - - Weight 119.5 kg (263 lb 8 oz) 08/26/2023 11:08 A M BOWLING FLOOR DESK CLERK Height 179 cm (5' 10.47) 08/26/2023 11:08 AM CS T Body Mass Index 37.3 08/26/2023 11:08 AM BOWLING FLOOR DESK CLERK Plan of Treatment Upcoming Encounters Date Type Department Care Team (Late st Contact Info) Description 09/13/2023 11:00 AM BOWLING FLOOR DESK CLERK Appointment [address] [address] Maikel Ruffin, PT [address] [place] [address] 09/20/2023 11:45 AM BOWLING FLOOR DESK CLERK Appointment [address] [address] Maikel Ruffin, PT [address] [place] [address] 09/27/2023 11:45 AM BOWLING FLOOR DESK CLERK Appointment [address] [address] Maikel Ruffin, PT [address] [place] [address] Health Maintenance Due Date Last Done Comments Medicare Wellness for age 65+ 10/18/2023 10/18/2022, 09/30/2021 Depression screening for age 12+ 10/22/2023 10/21/2022, 10/19/2022, 10/18/2022, Additional history exists BMI (ht and wt on same day) for age 18+ 08/26/2024 08/26/2023, 10/18/2022, 09/30/2021, Additional history exists Colonoscopy through age 75 05/06/202505/06, 04/18/2015, 03/10/2010, Additional history exists Lipids for age 45-75 10/19/2027 10/18/2022, 09/30/2021, 09/26/2020, Additional history exists Tetanus booster 08/23/2032 08/23/2022, 07/15, 03/16/2005 Tdap Completed 07/28/2012 Hepatitis C screening for ag e 18-79 Completed 08/23/2016 Pneumococcal series for age 65+ Completed 8, 08/23/2016 Zoster (shingles) series for age 50+ Completed 03/02/2022, 12/01/2021, 07/14/2011 Influenza for age 65+ Completed 05/04/2023 , 04/29/2022, 04/30/2021, Additional history exists COVID-19 vaccine series Completed 06/08/20, 08/23/2022, 03/02/2022, Additional history exists Medical Devices Implanted Type Area Senior Caregiver Device Identifier Shelf Expiration Date Model / Serial / Lot [id number] - [id number] Implanted:Qty: 1 on 09/08/2015 by Christopher Saravia DPM at [facility] Right: Foot Musculoskeletal Transplant 08/20/2016 [id number] / [id number] / Description:[employer], S mall [id number] - [id number] Implanted:Qty: 1 on 09/08/2015 by Christopher Saravia DPM at [facility] Right: Foot [employer] 02/12/2020 [id number] / / [id number] Description:Locking Plate [id number] - [id number] Implanted:Qty: 1 on 09/08/2015 by Christopher Saravia DPM at [facility] Right: Foot [employer] [id number] / / Description:Asnis III cannul ated screw 5.0 x 46mm [id number] - [id number] Implanted:Qty: 2 on 09/08/2015 by Christopher Saravia DPM at [facility] Right: Foot [employer] [id number] / / Description:locking screw, t 10, 3.5mm x 22mm [id number] - [id number] Implanted:Qty: 1 on 09/08/2015 by Christopher Saravia DPM at [facility] Right: Foot [employer] [id number] / / Description:locking screw, t 10, 3.5mm x 26mm [id number] - [id number] Implanted:Qty: 1 on 09/08/2015 by Christopher Saravia DPM at [facility] Right: Foot [employer] [id number] / / Description:locking screw, t 10, 3.5mm x 20mm Procedures Procedure Name Priority Date/Time Associated Diagnosis Comments CBC WITH AUTO DIFFERENTIAL Routine 08/26/2023 11:43 AM BOWLING FLOOR DESK CLERK Preop examination Chronic pain of left knee BASIC METABOLIC PANEL Routine 08/26/2023 11:43 AM BOWLING FLOOR DESK CLERK Preop examination Chronic pain of left knee CBC WITH AUTO DIFFERENTIAL Routine 08/26/2023 11:43 AM BOWLING FLOOR DESK CLERK Preop examination Chronic pain of left knee EKG 12 LEAD Routine 08/26/2023 12:00 AM BOWLING FLOOR DESK CLERK Preop examination Chronic pain of left knee from Last 3 Months Results * CBC WITH AUTO DIFFERENTIAL (08/26/2023 11:43 AM BOWLING FLOOR DESK CLERK) WHITE BLOOD COUNT 6.7 4.5 - 11.0 thou/cu mm 08/26/2023 12:49 PM [facility] RED BLOOD COUNT 4.86 4.30 - 5.90 mil/cu mm 08/26/2023 12:49 PM [facility] HEMOGLOBIN 15.4 13.5 - 17.5 g/dL 08/26/2023 12:49 PM [facility] HEMATOCRIT 46.9 37.0 - 53.0 % 08/26/2023 12:49 PM [facility] MCV 97 80 - 100 fL 08/26/2023 12:49 PM [facility] MCH 31.7 26.0 - 34.0 pg 08/26/2023 12:49 PM [facility] MCHC 32.8 32.0 - 36.0 g/dL 08/26/2023 12:49 PM [facility] RDW 13.5 11.5 - 15.5 % 08/26/2023 12:49 PM [facility] PLATELET COUNT 223 140 - 440 thou/cu mm 08/26/2023 12:49 PM [facility] MPV 10.9 6.5 - 11.0 fL 08/26/2023 12:49 PM [facility] % NEUT 58.4 % 08/26/2023 12:49 PM [facility] % LYMPH 25.9 % 08/26/2023 12:49 PM [facility] % MONO 9.9 % 08/26/2023 12:49 PM [facility] % EOS 5.4 % 08/26/2023 12:49 PM [facility] % BASO 0.4 % 08/26/2023 12:49 PM [facility] ABSOLUTE NEUTROPHILS 3.9 1.7 - 7.0 thou/cu mm 08/26/2023 12:49 PM [facility] ABSOLUTE LYMPHOCYTES 1.7 0.9 - 2.9 thou/cu mm 08/26/2023 12:49 PM [facility] ABSOLUTE MONOCYTES 0.7 <0.9 thou/cu mm 08/26/2023 12:49 PM [facility] ABSOLUTE EOSINOPHILS 0.4 <0.5 thou/cu mm 08/26/2023 12:49 PM [facility] ABSOLUTE BASOPHILS 0.0 <0.3 thou/cu mm 08/26/2023 12:49 PM [facility] Blood BLOOD SPECIMEN / Unknown Venipuncture / Unknown 08/26/2023 11:43 AM BOWLING FLOOR DESK CLERK 08/26/2023 11:43 AM BOWLING FLOOR DESK CLERK Jackson Lauri Sykora MD HEMATOLOGY [facility] [address] [place] [address] * (ABNORMAL) BASIC METABOLIC PANEL (08/26/2023 11:43 AM BOWLING FLOOR DESK CLERK) SODIUM 142 136 - 145 mmol/L 08/26/2023 1:14 PM [facility] POTASSIUM 4.2 3.5 - 5.1 mmol/L 08/26/2023 1:14 PM [facility] CHLORIDE 106 98 - 107 mmol/L 08/26/2023 1:14 PM [facility] CO2,TOTAL 26 22 - 29 mmol/L 08/26/2023 1:14 PM [facility] ANION GAP 10 5 - 18 08/26/2023 1:14 PM [facility] GLUCOSE 97 70 - 99 mg/dL 08/26/2023 1:14 PM [facility] CALCIUM 9.9 8.8 - 10.2 mg/dL 08/26/2023 1:14 PM [facility] BUN 22 8 - 23 mg/dL 08/26/2023 1:14 PM [facility] CREATININE 1.04 0.70 - 1.20 mg/dL 08/26/2023 1:14 PM [facility] BUN/CREAT RATIO 21(H) 10 - 20 1:14 PM [facility] eGFR 76(L) >90 mL/min/1.7 3m2 08/26/2023 1:14 PM [facility] Comment:As of 2021, eG FR is calculated by the CKD-EPI creatinine equation without race adjustment. ??eGFR can be influenced by muscle mass, exercise, and diet. ??The reported eGFR is an estimation only and is only applicable if the renal function is stable. Blood BLOOD SPECIMEN / Unknown Venipuncture / Unknown 08/26/2023 11:43 AM BOWLING FLOOR DESK CLERK 08/26/2023 11:43 AM BOWLING FLOOR DESK CLERK Jackson Pink MD [facility] [address] [place] [id number] * EKG 12 LEAD (08/26/2023 12:00 AM BOWLING FLOOR DESK CLERK) Jackson Pink MD EKG ORD from Last 3 Months Advance Directives Documents on File Type Date Recorded Patient Signaling Design Engineer Expl anation Healthcare Directive 11/16/2020 021 Latest Code Status on File Code Status Date Activated Date Inactivated Comments Full Code 05/06/2020 8:25 AM 05/06/2020 12:45 PM Question Answer Comments Code Status Discussion: Discussed Care Teams Sales Service Executive Relationship Specialty Start Date End Date Jackson Pink MD [address] [place] [address] PCP - General Family Practice 03/26/13
[2023-09-08] MEDS: ACETAMINOPHEN 500 MG TABLET 1000 MG PO ×3 (08:20→20:21)
[2023-09-08] MEDS: OXYCODONE (CR) 10 MG TAB.ER.12H PO (08:21)
[2023-09-08] MEDS: CELECOXIB 200 MG CAPSULE PO (08:21)
[2023-09-08] MEDS: LACTATED RINGERS 1000 ML 1,000 ML 100 ML IV ×2 (08:30→10:10)
[2023-09-08] MEDS: MIDAZOLAM HCL 1 MG/ML inj IVP (08:53)
[2023-09-08] MEDS: fentaNYL 100 MCG/2 ML inj IVP (08:53)
--- NOTE | 2023-09-08 08:54 | SUR.PREOP ---
TIME?OUT:?0852 PT/Shruti Steele RN/Dr. Vaibhav MDA?VERIFICATION?OF?SURGICAL?SITE left knee,?PROCEDURE,?AND?CONSENT OBTAINED?PRIOR?TO?INVASIVE?PROCEDURE.
[2023-09-08] MEDS: CEFAZOLIN 2 GM INJ IVP (09:29)
[2023-09-08] MEDS: TRANEXAMIC ACID 100 MG/ML INJ 1000 MG IV (09:29)
--- NOTE | 2023-09-08 10:31 | CRLHL7_ITS ---
For Patients: As a result of the Cures Act, medical imaging exams and procedure reports are released immediately into your electronic medical record. You may view this report before your referring provider. If you have questions, please contact your health care provider. Indication: POST OP TKA Technique: Two views left knee Findings/Impression: Hardware from a left total knee arthroplasty is in satisfactory position. Bone alignment is normal. No sign of acute fracture. Postop changes are within normal limits. Dictated by Kranthi Rivas MD @ 09/08/2023 12:05:27 PM (Electronically Signed)
--- NOTE | 2023-09-08 10:32 | PM.ORPRC ---
Procedure Note Date of procedure: 09/08/23 Procedure: PREOPERATIVE DIAGNOSIS: Left knee osteoarthritis POSTOPERATIVE DIAGNOSIS: Left knee osteoarthritis NAME OF OPERATION: Left total knee arthroplasty SURGEON: Andrade Riddle MD CONCRETE BLOCK MASON: KETAN Packer ANESTHESIA: Spinal ESTIMATED BLOOD LOSS: 0 mL COMPLICATIONS: None SPECIMENS: None DRAINS: None PREOPERATIVE ANTIBIOTICS: Ancef 3 grams, antibiotic impregnated cement IMPLANTS: 1. J&J Attune # 7 posterior stabilized femur 2. # 8 revision CRS fixed-bearing tibia, with a 14 mm x 50 mm cemented stem 3. # 7 posterior stabilized, 5 mm fixed-bearing polyethylene 4. 41 patella INDICATIONS: The patient is a 73-year-old with a longstanding history of severe, unrelenting left knee pain secondary to end-stage (grade IV) left knee osteoarthritis. Despite appropriate nonoperative management, including activity modification, anti-inflammatories, iahv-oza-ktjenlb pain medication, bracing, physical therapy, and injections they continue to have pain and disability. Operative intervention was offered. The risks, benefits and expected outcomes were discussed in detail. These included but were not limited to: Infection, bleeding, injury to blood vessel or nerve, venous thromboembolism. All questions were answered to their satisfaction. Use of an patent legal assistant was necessary throughout the case for patient positioning and safety, soft tissue retraction, and closure. PROCEDURE: Spinal anesthesia was administered. The patient was placed supine on the operating table. The patent legal assistant made sure the patient was positioned appropriately. The lower extremity was prepped and draped in the usual sterile fashion. The limb was exsanguinated with the Franck bandage. The pneumatic tourniquet was inflated to 300 mmHg. A standard anterior incision was made with the knee in flexion. Subcutaneous dissection was sharply taken through fascial layer #1. Full-thickness medial and lateral flaps were elevated. The patent legal assistant retracted the soft tissues and protected them throughout the case. A standard subvastus approach was made. The patella was everted. The infrapatellar fat pad was preserved. The menisci and cruciate ligaments were sharply d?brided. Marginal osteophytes were d?brided with the rongeur. The drill was used to penetrate the femoral canal. The canal was aspirated and irrigated with pulse lavage. The intramedullary femoral guide was placed for a 5-degree valgus cut, removing 10 mm off the distal femur. The saw was used to make the cut. Whitesides line and the trans epicondylar axis were marked. The femoral sizing guide was pinned onto the distal femur. Three degrees of external rotation nicely parallels the transepicondylar axis. Pins were placed for posterior referencing. The four-in-one cutting guide was pinned onto the distal femur. The anterior, posterior, and chamfer cuts were made. The patent legal assistant protected the collateral ligaments. The box cutting guide was pinned. The box cuts were made. The boxed trial was placed and was an excellent fit. Drill holes for the lugs were made. Attention was then turned to the proximal tibia. The extramedullary tibial guide was placed for a neutral varus/valgus cut with 5 degrees of posterior slope, removing 2 mm based off the medial tibial surface. The patent legal assistant protected the collateral ligaments and the neurovascular bundle. The saw was used to make the cut. Trial components were placed. The knee was nicely balanced in both flexion and extension. The trial components were removed. The tray was placed in appropriate rotation, parallel to our tibial cutting pins. It was pinned by the patent legal assistant and the drill x2 was used. The stemmed tibial trial was placed. The punch was used. The tray was removed. The punch was used again. Attention was then turned to the patella. Torres Martinez patellar thickness was 23.5 mm. The lobster claw resection guide was used with the 9.5 mm celine. The saw was used to make the cut. Drill holes were made by the patent legal assistant. The trial was placed and was an excellent fit. Cancellous surfaces were irrigated with pulse lavage and thoroughly dried by the patent legal assistant. We cemented the tibial component, then the femoral component. We impacted the 5 mm polyethylene onto the tibial tray. The knee was brought into full extension. We then cemented the patellar component. Excessive cement was removed. The cement was allowed to harden. The knee was taken through a range of motion and was found to be nicely balanced in both flexion and extension. The patella tracks centrally. The patent legal assistant did a three minute dilute Betadine solution soak. The patent legal assistant irrigated the wound with 3 liters of normal saline via pulse lavage. The patent legal assistant reapproximated the extensor mechanism with #1 Vicryl in an interrupted eztsur-ci-hnqhl fashion. The patent legal assistant then ran the extensor mechanism with a #1 PDO Stratafix. The patent legal assistant closed the subcutaneous tissues with a 3-0 Stratafix and the skin with a running 3-0 Stratafix in a subcuticular fashion. Glue was used to seal the skin. The patent legal assistant placed a dry dressing, SIMON stocking, and Polar Care. Sponge and needle counts were correct x2. The patient tolerated the procedure well. There were no apparent complications. They were carefully transferred to the hospital bed and taken to the postanesthesia care unit in satisfactory condition. PLAN: The patient will be mobilized with physical therapy. Aspirin will be used for DVT prophylaxis. They will be discharged to home once medically appropriate.
--- NOTE | 2023-09-08 10:54 | W.ANESCHARGE ---
Anesthesia Charges Start Date/Time Anesthesia Start Date: 09/08/23 Anesthesia Start Time: 09:01 Stop Date/Time Anesthesia Stop Date: 09/08/23 Anesthesia Stop Time: 11:09 Summary Extremes of Age - Over 70 or under 1: MDA
--- NOTE | 2023-09-08 10:54 | W.PM.NB ---
Nerve Block Nerve Block Time Seen by Provider: 08:58 Date Seen: 09/08/23 Type of block requested by surgeon for post-operative analgesia: adductor canal Side: left Time out performed: Yes Verification of patient name: Yes Verification of date of : Yes Site marking: site marked Name of person performing procedure: Vaibhav Continuous monitoring Was continuous monitoring of O2 sat, B/P, court recording monitor, recorded every 15 minutes?: Yes Procedure Checklist: sterile prep, needles and gloves Ultrasound guided. Images saved: Yes Medications given in 5ml increments after negative aspiration: Ropivicaine %: 0.5 mL: 20 Needle gauge: 20 Decadron (mg): 10 Precedex (mcg): 25 Patient tolerated procedure well: Yes Additional comments: Needle noted adjacent to nerve Block Charges Block Charge (with Pro Fee): Femoral Nerve Use of Ultrasound Machine for Block: Yes- US Guidance/pain block
--- NOTE | 2023-09-08 10:55 | W.PM.NB ---
Nerve Block Nerve Block Time Seen by Provider: 08:58 Date Seen: 09/08/23 Type of block requested by surgeon for post-operative analgesia: geniculars Side: left Time out performed: Yes Verification of patient name: Yes Verification of date of : Yes Site marking: site marked Name of person performing procedure: Vaibhav Continuous monitoring Was continuous monitoring of O2 sat, B/P, lieutenant ballistics, recorded every 15 minutes?: Yes Procedure Checklist: sterile prep, needles and gloves Medications given in 5ml increments after negative aspiration: Ropivicaine %: 0.5 mL: 9 Needle gauge: 25 Patient tolerated procedure well: Yes Block Charges Block Charge (with Pro Fee): Genicular Nerve Block Use of Ultrasound Machine for Block: No
--- NOTE | 2023-09-08 11:10 | P.ANES_ITS ---
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
[2023-09-08] MEDS: OXYCODONE 5 MG TABLET PO ×5 (12:37→22:26)
[2023-09-08] MEDS: HYDROmorphone 0.5 mg/0.5 ml inj IVP ×3 (13:10→18:11)
--- NOTE | 2023-09-08 13:56 | PM.IMCN1 ---
Date of Consult Patient: Najma Patient Consult date: 09/08/23 Requesting Physician: Orthopedics Primary Care Provider: Jackson Pink MD Consult Narrative Narrative: Berto Matthews is a 73 year old male admitted to the hospital for left total knee arthroplasty. Procedure performed by Dr. Riddle. No apparent operative complications. Dr. Riddle has requested consultation for medical management. Patient had right knee arthroplasty 1 year ago. That was complicated by difficulties with pain and swelling in the right knee. He reports he is already feeling like he is doing better than he did last year. His block appears to be more effective right now. He has no nausea, shortness of breath, chills. He had a preop physical did not identify any significant perioperative concerns. Review of Systems Narrative: He reports 2 recent health concerns. He gets up twice at night to void. [facility] Medical History (Updated 09/08/23 @ 14:54 by Christiano De Anda MD) Hyperlipemia ?E78.5 - Hyperlipidemia, unspecified (ICD-10) Sensorineural hearing loss (SNHL) of both ears ?H90.3 - Sensorineural hearing loss, bilateral (ICD-10) Obstructive sleep apnea on CPAP ?G47.33 - Obstructive sleep apnea (adult) (pediatric) (ICD-10) ?Z99.89 - Dependence on other enabling machines and devices (ICD-10) Osteoarthritis ?M19.90 - Unspecified osteoarthritis, unspecified site (ICD-10) Hypercholesteremia ?E78.00 - Pure hypercholesterolemia, unspecified (ICD-10) Sleep apnea ?G47.30 - Sleep apnea, unspecified (ICD-10) Surgical History (Updated 09/08/23 @ 14:53 by Christiano De Anda MD) Status post left knee replacement ?Z96.652 - Presence of left artificial knee joint (ICD-10) Status post right knee replacement (09/10/22) ?Z96.651 - Presence of right artificial knee joint (ICD-10) H/O arthroscopic knee surgery ?Z98.890 - Other specified postprocedural states (ICD-10) History of appendectomy ?Z90.49 - Acquired absence of other specified parts of digestive tract (ICD-10) H/O elbow surgery (10/07/16) ?Z98.890 - Other specified postprocedural states (ICD-10) H/O elbow surgery (02/10/17) ?Z98.890 - Other specified postprocedural states (ICD-10) Family History (Updated 09/08/23 @ 14:49 by Christiano De Anda MD) Sister High cholesterol Father Penile cancer Social History (Updated 09/08/23 @ 14:56 by Christiano De Anda MD) Narrative: Patient lives in [place] with his . They have a 2 level home. He has 1 step to get into the house and then can live on 1 level. He did well after his last surgery managing at home after he had the pain and swelling in his knee improved. He does not smoke. He occasionally drinks beer. 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 His daughter in-law is a hospitalist in [place] and his son works for [employer] Highest level of school completed/degree received: Master's degree Smoking Status: Never smoker Do you use any of these nicotine containing products: None How often do you have a drink containing alcohol: 2-4 times a month Alcohol type: beer How many standard drinks containing alcohol do you have on a typical day: 1 or 2 AUDIT-C Alcohol total score: 2 Non-prescribed substance use: denies use Caffeine: Yes (coffee- 2 cups/day) service: No Meds Home Medications and Allergies Home Medications Medication Instructions Recorded Confirmed Type aspirin 81 mg tablet,delayed 162 mg PO DAILY 07/21/22 09/06/23 History release ezetimibe 10 mg tablet 10 mg PO DAILY 07/21/22 09/06/23 History fenofibrate 160 mg tablet 160 mg PO DAILY 07/21/22 09/06/23 History indomethacin 50 mg capsule 50 mg PO Q8H PRN 07/21/22 09/06/23 History calcium carbonate 500 mg-vitamin 1 tab PO DAILY 08/11/22 09/06/23 History D3 10 mcg (400 unit) tablet (Calcium 500 + D) lysine 500 mg tablet (L-Lysine) 500 mg PO BID PRN 08/11/22 09/06/23 History celecoxib 200 mg capsule 200 mg PO DAILY 03/09/23 09/06/23 History gabapentin 100 mg capsule 100 mg PO HS PRN 03/09/23 09/06/23 History tamsulosin 0.4 mg capsule 0.4 mg PO DAILY 03/09/23 09/06/23 History niacin 100 mg tablet 100 mg PO DAILY 07/18/23 09/06/23 History Home Medication Comments: He takes some eyedrops and eye ointment for dry eye which he says he does not need in the next day Allergies Allergy/AdvReac Type Severity Reaction Status Date / Time atorvastatin Allergy Intermediate muscle Verified 09/08/23 07:44 aches Exam Narrative: Exam Narrative: He is alert and is in no distress. Oropharynx with small airway. Respirations are clear to auscultation. Cardiovascular: S1, S2, regular rate and rhythm. No murmur gallop or rub. Abdomen is soft without tenderness. Lower extremities with intact pulses and sensation. He has some decreased sensation just below his left knee. No edema. Good peripheral pulses and strength. Const: Vital Signs, click to edit/add: Vital Signs - 24 hr 09/08/23 08:42 09/08/23 08:53 09/08/23 08:55 Temperature 98.1 F Pulse Rate 55 L 56 L 57 L Respiratory Rate 16 16 14 Blood Pressure 160/80 H 170/96 H 169/81 H Pulse Oximetry 96 97 95 Oxygen Delivery Me thod Room Air Nasal Cannula Nasal Cannula Oxygen Flow Rate 2 2 09/08/23 11:05 09/08/23 11:10 09/08/23 11:15 Temperature 97.4 F L Pulse Rate 68 62 67 Respiratory Rate 17 19 19 Blood Pressure 154/83 H 154/85 H 150/84 H Pulse Oximetry 95 95 95 Oxygen Delivery Me thod Room Air Room Air Room Air Oxygen Flow Rate 09/08/23 11:20 09/08/23 11:25 09/08/23 11:30 Temperature 97.4 F L Pulse Rate 60 60 58 L Respiratory Rate 18 19 18 Blood Pressure 156/78 H 156/88 H 163/90 H Pulse Oximetry 96 97 97 Oxygen Delivery Me thod Room Air Room Air Room Air Oxygen Flow Rate 09/08/23 11:35 Temperature 97.4 F L Pulse Rate 58 L Respiratory Rate 18 Blood Pressure 162/85 H Pulse Oximetry 97 Oxygen Delivery Me thod Room Air Oxygen Flow Rate Documenting provider has reviewed patient's vital signs: yes Assessment and Plan Assessment and plan (1) Status post left knee replacement: Problem comment: 09/08/2023, Dr. Riddle, no apparent complications. Status: Acute (2) Obstructive sleep apnea on CPAP: Status: Acute (3) Postoperative pain: Problem comment: Evaluate and manage per routine. Likely will benefit from resuming Celebrex as outpatient with history of pain problems 1 year ago. Anticipate increasing pain tomorrow when his block wears off. Status: Acute Plan Patient is admitted for postoperative management following left total knee arthroplasty. Resume medications were his chronic medical problems as needed. CPAP for sleep apnea. Ongoing assessment of pain and management of pain Total time spent today is 40 minutes, 25 minutes in coordination of care and discussing with patient and ongoing management of postoperative pain and rehab
[2023-09-08] MEDS: CEFAZOLIN 3 GM in 0.9 % SODIUM CHLORIDE Mini-bag 100 ML IVPB (15:22)
--- NOTE | 2023-09-08 15:35 | PC.NURSE ---
Patient arrived from PACU at 1147 am to room 249 s/p [address]KA with Dr. Riddle. Knee x-rays completed after pt arrived on med surg. Please see initial assessment form PACU and frequent VS. Pt worried about having pain when his block wears off. Frequent interventions, polar ice, knee high teds and plexipulses. IV patent. Please see eMar for meds provided for pain control. Madelyn at bedside, Dr. Riddle in to check on pt this afternoon. Up to recliner with Rosendo from PT. Returned to bed by POWERHOUSE ELECTRICIAN APPRENTICE. No void since surgery, report to Jennyfer No RN for evening shift. IS 2500 times 4. Advanced to regular diet.
--- NOTE | 2023-09-08 19:20 | PC.NURSE ---
Post op VS from [phone] charted by advertising writer on behalf of [facility] [employer].
[2023-09-08] MEDS: LORazepam 0.5 MG TABLET PO (20:19)
[2023-09-08] MEDS: ASPIRIN 81 MG TABLET EC PO (20:19)
[2023-09-08] MEDS: SENNOSIDES 1 TAB TABLET 2 TAB PO (20:21)
[2023-09-08] MEDS: hydrOXYzine pamoate 25 MG CAPSULE PO (20:22)
[2023-09-08] MEDS: GABAPENTIN 100 MG CAPSULE PO (22:26)
--- NOTE | 2023-09-08 22:34 | PC.NURSE ---
Shift [id number]- Patient initially rates pain at 9/10- pain scale explained by RN, edits pain rating to 7/10. He is able to hold conversation calmly with no outward signs of pain at that time, which remains true all throughout shift. Perseverates on pain medication timings, to a lesser extent refilling ice in cryocuff. Dressing is clean, dry and intact. He is eating, drinking and voiding without issue. He has been saline locked.
[2023-09-09] VITALS: PULSE 61; RESP 18
[2023-09-09] MEDS: CEFAZOLIN 3 GM in 0.9 % SODIUM CHLORIDE Mini-bag 100 ML IVPB (00:01)
[2023-09-09] MEDS: OXYCODONE 5 MG TABLET PO ×4 (00:45→11:31)
[2023-09-09] MEDS: ACETAMINOPHEN 500 MG TABLET 1000 MG PO ×2 (02:38→08:43)
[2023-09-09 02:40] VITALS: BP 143/73; PULSE 59; RESP 18; O2SAT 93
[2023-09-09 07:00] VITALS: BP 137/75; PULSE 78; RESP 16; TEMP 36.2; O2SAT 96
[2023-09-09 07:02] LABS: INR 1.18 (0.91-1.10); Prothrombin Time 15.8 Seconds
[2023-09-09 07:07] LABS: Potassium* 4.5 mmol/L (3.6-5.1); Sodium* 135 mmol/L (135-149)
[2023-09-09 07:09] LABS: Basophils Percent Auto 0.1 % (0.0-3.0); Hematocrit 38.7 % (37.0-53.0); Hemoglobin* 12.8 gm/dL (13.5-17.5); Immature Granulocytes Pct Auto 0.4 %; Mean Corpuscular HGB Conc 33 gm/dL (32-36); Mean Corpuscular Hemoglobin 32 pg (26-34); Mean Corpuscular Volume 96 fL (80-100); Monocytes Percent Auto 9.8 % (0.0-11.0); Neutrophils Percent Auto 81.7 % (42.0-72.0); Platelet Count* 237 K/uL (140-440); RDW Coefficient of Variation % 12.7 % (11.5-15.5); Red Blood Count 4.05 m/uL (4.30-5.90); White Blood Count* 13.71 K/uL (4.50-11.00)
[2023-09-09 07:10] LABS: Blood Urea Nitrogen* 25 mg/dL (7-30); Creatinine* 0.9 mg/dL (0.5-1.5); Est. Creatinine Clearance* 68.94; Estimated Glomerular Filt Rate 91 ml/min
[2023-09-09 07:11] LABS: Slide Review Reflex No
[2023-09-09] MEDS: EZETIMIBE 10 MG TABLET PO (08:43)
[2023-09-09] MEDS: FENOFIBRATE 145 MG TABLET PO (08:43)
[2023-09-09] MEDS: TAMSULOSIN HCL 0.4 MG CAPSULE PO (08:44)
[2023-09-09] MEDS: SENNOSIDES 1 TAB TABLET 2 TAB PO (08:44)
[2023-09-09] MEDS: ASPIRIN 81 MG TABLET EC PO (08:44)
--- NOTE | 2023-09-09 09:29 | PM.ORPN ---
Subjective Subjective Time Seen by Provider: 07:15 Date Seen: 09/09/23 Principal diagnosis: Status post left knee replacement Interval history: Berto had pain postoperatively yesterday. Currently he is comfortable. He will discharge to home today. Ortho Exam Narrative Exam Narrative: Alert and oriented x3. Patient is in no acute distress. Converses without labored breathing. Hearing is grossly intact. Ambulates with a walker. Examination of the left knee shows the dressing is intact. Effusion is present. Soft tissue edema is mild. No erythema or warmth or sign of infection. Quad strength 5/5. Able to straight leg raise. Bilateral calves are soft and nontender. Const Vital Signs, click to edit/add: Vital Signs - 24 hr 09/08/23 11:05 09/08/23 11:10 09/08/23 11:15 Temperature 97.4 F L Pulse Rate 68 62 67 Pulse Rate [Pulse Oximeter] Respiratory Rate 17 19 19 Blood Pressure 154/83 H 154/85 H 150/84 H Blood Pressure [Right Arm] Pulse Oximetry 95 95 95 Oxygen Delivery Method Room Air Room Air Room Air 09/08/23 11:20 09/08/23 11:25 09/08/23 11:30 Temperature 97.4 F L Pulse Rate 60 60 58 L Pulse Rate [Pulse Oximeter] Respiratory Rate 18 19 18 Blood Pressure 156/78 H 156/88 H 163/90 H Blood Pressure [Right Arm] Pulse Oximetry 96 97 97 Oxygen Delivery Method Room Air Room Air Room Air 09/08/23 11:35 09/08/23 11:47 09/08/23 12:00 Temperature 97.4 F L 96.6 F L Pulse Rate 58 L 55 L Pulse Rate [Pulse Oximeter] 54 L Respiratory Rate 18 18 18 Blood Pressure 162/85 H Blood Pressure [Right Arm] 147/79 H 143/75 H Pulse Oximetry 97 Oxygen Delivery Method Room Air Room Air Room Air 09/08/23 12:15 09/08/23 12:30 09/08/23 13:00 Temperature Pulse Rate Pulse Rate [Pulse Oximeter] 57 L 58 L 61 Respiratory Rate 18 18 18 Blood Pressure Blood Pressure [Right Arm] 147/80 H 153/78 H 160/93 H Pulse Oximetry 97 95 96 Oxygen Delivery Method Room Air Room Air Room Air 09/08/23 13:30 09/08/23 14:00 09/08/23 15:00 Temperature 97.1 F L Pulse Rate Pulse Rate [Pulse Oximeter] 68 69 69 Respiratory Rate 20 20 18 Blood Pressure Blood Pressure [Right Arm] 180/101 H 162/92 H 150/85 H Pulse Oximetry 96 95 94 Oxygen Delivery Method Room Air Room Air Room Air 09/08/23 16:00 09/08/23 17:00 09/08/23 18:00 Temperature Pulse Rate Pulse Rate [Pulse Oximeter] 67 73 69 Respiratory Rate 16 16 16 Blood Pressure Blood Pressure [Right Arm] 141/79 H 149/76 H 140/75 H Pulse Oximetry 96 96 95 Oxygen Delivery Method Room Air Room Air Room Air 09/09/23 00:00 09/09/23 02:40 09/09/23 07:00 Temperature 97.1 F L Pulse Rate Pulse Rate [Pulse Oximeter] 61 59 L 78 Respiratory Rate 18 18 16 Blood Pressure Blood Pressure [Right Arm] 143/73 H 137/75 Pulse Oximetry 93 96 Oxygen Delivery Method Room Air Room Air Assessment and Plan Assessment and plan (1) Status post left knee replacement: Problem details: 09/08/2023, Dr. Riddle, no apparent complications. Status: Acute Assessment and Plan: Plan for discharge is today to home if they meet discharge criteria. DVT prophylaxis includes aspirin 81 mg twice daily x1 month, Anjel stockings x1 month may remove for 1 hr per day, frequent ambulation Remove dressing in 1 week. Observe wound and phone Orthopedics with any questions or concerns Return to clinic in 1 week for a wound check Return to clinic in 6 weeks with surgeon Minimize narcotic use. Wean off and discontinue soon as possible. Activities as tolerated. No strenuous activity. Outpatient physical therapy as scheduled. Ice and elevate the operative extremity. No restriction on ice. Berto has Celebrex at home. He can add this to his regimen for further pain relief if oxycodone is not optimal.
--- NOTE | 2023-09-09 11:39 | PC.NURSE ---
Discharge-- Pleasant and cooperative, alert and oriented patient discharged to home via wheelchair with . VSS and pt is afebrile. SPO2 maintained >94% on RA. Pain appears well managed with Oxycodone and scheduled Tylenol. Dressing to left knee is C/D/I and CMS WNL. LS CTA. He denied nausea and tolerated a regular diet without difficulty. No post op BM yet. Discharge education was provided including diagnosis info, symptoms to report, medications, pain management and follow up plan. All questions were answered. SL was removed with tip intact.
== END 2023-09-09 01:30 | disposition home or self-care (01) ==
LOC: OR 07:28 → MEDSURG 07:31
PROVIDERS: PCP Family Medicine; Visit Provider Orthopaedic Surgery
PROC: (CPT 27447; principal; 2023-09-08 09:00)
DX: M17.12 Unilateral primary osteoarthritis, left knee (principal); G89.18 Other acute postprocedural pain; G47.33 Obstructive sleep apnea (adult) (pediatric); Z99.89 Dependence on other enabling machines and devices; E66.9 Obesity, unspecified; Z68.38 Body mass index [BMI] 38.0-38.9, adult; E78.5 Hyperlipidemia, unspecified
CPT/HCPCS: 27447; 01402; 36415; 64447; 64454; 73560; 76942; 82565; 84132; 84295; 84520; 85025; 85610; 97110; 97116; 97161; 97165; 97530; 97535; 99100; A9270; C1776; J0690; J1100; J1170; J2250; J2704; J2795; J3010; J7120

== ENCOUNTER 2023-09-26 12:57 | Outpatient (CLI) | payer MEDICARE, BC, SELFPAY ==
--- NOTE | 2023-09-26 13:00 | US_ITS ---
LEFT LOWER EXTREMITY VENOUS STUDY ULTRASOUND COMPARISON: NONE. INDICATION: POST KNEE ARTHROPLASTY. TENDERNESS. TECHNIQUE: GRAYSCALE, POWER DOPPLER AND COLOR DOPPLER ULTRASOUND EXAMINATION OF THE LEFT LOWER EXTREMITY VENOUS STRUCTURES. FINDINGS: THERE IS NO DVT PRESENT WITHIN THE LEFT LOWER EXTREMITY. NORMAL COLOR DOPPLER FLOW AND AUGMENTATION WITHOUT STENOSIS. NORMAL COMPRESSIBILITY. NORMAL RIGHT COMMON FEMORAL VEIN. IMPRESSION: NO EVIDENCE OF DVT LEFT LOWER EXTREMITY.
--- OUTSIDE RECORDS SUMMARY | 2023-09-26 13:02 | XMS_ITS | Clinical Summary ---
Author Name Unknown Organization [facility] Address [place], [place] [address] Care Team Providers Care Ear Nose Throat Surgeon Name Role Phone Jackosn Pink MD Primary Care Provider Allergies Active Allergy Reactions Criticality Noted Date Comments Atorvastatin Myalgia High muscle pain Rxnrtiw-Ilc-Soa Reductase Inhibitors Muscle Weakness High 11/15/2012 Muscle [...] Encounters Date Type Department Care Team Description 09/23/2023 11:45 AM RN ACUTE CARE - 09/23/2023 11:59 PM [facility] Hospital Encounter [facility] [address] [place] [address] Andrade Riddle MD Wegner, Angela V, BUYERS' AGENT 09/23/2023 Travel 09/20/2023 11:45 AM RN ACUTE CARE - 09/20/2023 11:59 PM RN ACUTE CARE Hospital Encounter [address] [place] [address] Andrade Riddle MD Iverson, Ryan, PT 09/20/2023 Travel 09/16/2023 11:45 AM RN ACUTE CARE - 09/16/2023 11:59 PM RN ACUTE CARE Hospital Encounter [address] [place] [address] Andrade Riddle MD Wegner, Mercy Mercedes, BUYERS' AGENT 09/16/2023 Travel 09/13/2023 10:47 AM RN ACUTE CARE - 09/13/2023 11:59 PM RN ACUTE CARE Hospital Encounter [address] [place] [address] Andrade Riddle MD Iverson, Ryan, PT Encounter for person encountering health services 09/13/2023 Travel 09/08/2023 Orders Only [facility] Scanner 1 scan: (1-Ord) [facility] KNEE 2V, 09/08/2023 08/26/2023 10:50 AM RN ACUTE CARE Preop Visit [address] [place] [address] Jackson Pink MD Pre-Op Exam (09/08/2023) 08/26/2023 Orders Only [address] [id number] Jackson Pink MD 1 scan: (1-Ord) 08/26/2023 08/26/2023 Travel 08/01/[address] [place] [address] Jackson Pink MD Form 07/20/2023 Transcribe Orders [facility] [address] [place] [id number] Andrade Riddle MD from Last 3 Months Immunizations Name Administration Dates Next Due AMB Influenza, IIV3 (Age >=3 years) Preserve Free (Flu Clinic Only) 05/29/2013 AMB Influenza, IIV4 PF (=>6 mos Flulaval,Fluzone Fluarix)(Flu Clinic Only) 05/27/2014 COVID-19 Vaccine Spikevax (M oderna 50mcg/0.5mL) 12YO+ [id number] Formula PF 06/08/2023 COVID-19 vaccine (Pfizer-Bio NTech 30mcg/0.3mL) 12YO+ BIVALENT PF, MDV 08/23/2022 COVID-19 vaccine (Pfizer-Bio NTech 30mcg/0.3mL) 12YO+ DEBRA-SUCROSE PF, MDV 03/02/2022 COVID-19 vaccine (Pfizer-Bio NTech 30mcg/0.3mL) PF, MDV 05/26/2021,11/08/2020,10/18/2020 Influenza A [...] Comments Blood Pressure 142/68 08/26/2023 11:08 AM RN ACUTE CARE Pulse 55 08/26/2023 11:08 AM RN ACUTE CARE Temperature 37 ??C (98.6 ??F) 08/26/2023 11:08 AM RN ACUTE CARE Respiratory Rate 18 01/14/2023 5:22 PM CDT Oxygen Saturation 96% 08/26/2023 11:08 AM RN ACUTE CARE Inhaled Oxygen Concentration - - Weight 119.5 kg (263 lb 8 oz) 08/26/2023 11:08 A M RN ACUTE CARE Height 179 cm (5' 10.47) 08/26/2023 11:08 AM CS T Body Mass Index 37.3 08/26/2023 11:08 AM RN ACUTE CARE Plan of Treatment Upcoming Encounters Date Type Department Care Team (Late st Contact Info) Description 09/27/2023 11:45 AM RN ACUTE CARE Appointment [address] [address] Maikel Ruffin, PT [address] [facility] [address] 09/29/2023 8:00 AM RN ACUTE CARE Appointment [address] [place] [address] Maikel Ruffin, PT [address] [facility] [place] [address] 10/04/2023 11:45 AM RN ACUTE CARE Appointment [address] [place] [address] Maikel Ruffin, PT [address] [facility] [place] [address] 10/07/2023 11:45 AM RN ACUTE CARE Appointment [address] [place] [address] Mercy Starr V, BUYERS' AGENT [address] [facility] [place] [address] 10/12/2023 11:00 AM RN ACUTE CARE Appointment [address] [place] [address] Maikel Ruffin, PT [address] [facility] [place] [address] 10/14/2023 11:45 AM RN ACUTE CARE Appointment [address] [place] [address] Maikel Ruffin, PT [address] [facility] [place] [address] Health Maintenance Due Date Last Done Comments Medicare Wellness for age 65+ 10/19/2023 10/18/2022, 09/30/2021 Depression screening for age 12+ [...] history exists Medical Devices Implanted Type Area Nitrator Operator Device Identifier Shelf Expiration Date Model / Serial / Lot [id number] - [id number] Implanted:Qty: 1 on 09/08/2015 by Christopher Saravia DPM at [facility] Right: Foot [employer] 08/20/2016 [id number] / [id number] / Description:[employer], S mall [id number] - [id number] Implanted:Qty: 1 on 09/08/2015 by Christopher Saravia DPM at [facility] Right: Foot [employer] 02/12/2020 [id number] / / [id number] Description:Locking Plate [id number] - [id number] Implanted:Qty: 1 on 09/08/2015 by Christopher Saravia DPM at [facility] Right: Foot [employer] [id number] / / Description:Asnis III cannul ated screw 5.0 x 46mm [id number] - [id number] Implanted:Qty: 2 on 09/08/2015 by Christopher Saravia DPM at [facility] Right: Foot [employer] [id number] / / Description:locking screw, t 10, 3.5mm x 22mm [id number] - [id number] Implanted:Qty: 1 on 09/08/2015 by Christopher Saravia DPM at [facility] Right: Foot [employer] [id number] / / Description:locking screw, t 10, 3.5mm x 26mm [id number] - [id number] Implanted:Qty: 1 on 09/08/2015 by Christopher Saravia DPM at [facility] Right: Foot [employer] [id number] / / Description:locking screw, t 10, 3.5mm x 20mm Procedures Procedure Name Priority Date/Time Associated Diagnosis Comments SCAN-RADIOLOGY REPORT 09/08/2023 12:00 AM RN ACUTE CARE CBC WITH AUTO DIFFERENTIAL Routine 08/26/2023 11:43 AM RN ACUTE CARE Preop examination Chronic pain of left knee BASIC METABOLIC PANEL Routine 08/26/2023 11:43 AM RN ACUTE CARE Preop examination Chronic pain of left knee CBC WITH AUTO DIFFERENTIAL Routine 08/26/2023 11:43 AM RN ACUTE CARE Preop examination Chronic pain of left knee EKG 12 LEAD Routine 08/26/2023 12:00 AM RN ACUTE CARE Preop examination Chronic pain of left knee from Last 3 Months Results * SCAN-RADIOLOGY REPORT (09/08/2023 12:00 AM RN ACUTE CARE) Anatomical Region Laterality Modality Other Scanner OTHER * CBC WITH AUTO DIFFERENTIAL (08/26/2023 11:43 AM RN ACUTE CARE) WHITE BLOOD COUNT 6.7 4.5 - 11.0 thou/cu mm 08/26/2023 12:49 PM [facility] RED BLOOD COUNT 4.86 4.30 - 5.90 mil/cu mm 08/26/2023 12:49 PM [facility] HEMOGLOBIN 15.4 13.5 - 17.5 g/dL 08/26/2023 12:49 PM [facility] HEMATOCRIT 46.9 37.0 - 53.0 % 08/26/2023 12:49 PM [facility] MCV 97 80 - 100 fL 08/26/2023 12:49 PM [facility] MCH 31.7 26.0 - 34.0 pg 08/26/2023 12:49 PM [facility] MCHC 32.8 32.0 - 36.0 g/dL 08/26/2023 12:49 PM [facility] RDW 13.5 11.5 - 15.5 % 08/26/2023 12:49 PM [facility] PLATELET COUNT 223 140 - 440 thou/cu mm 08/26/2023 12:49 PM [facility] MPV 10.9 6.5 - 11.0 fL 08/26/2023 12:49 PM [facility] % NEUT 58.4 % 08/26/2023 12:49 PM [facility] % LYMPH 25.9 % 08/26/2023 12:49 PM [facility] % MONO 9.9 % 08/26/2023 12:49 PM [facility] % EOS 5.4 % 08/26/2023 12:49 PM [facility] % BASO 0.4 % 08/26/2023 12:49 PM [facility] ABSOLUTE NEUTROPHILS 3.9 1.7 - 7.0 thou/cu mm 08/26/2023 12:49 PM [facility] ABSOLUTE LYMPHOCYTES 1.7 0.9 - 2.9 thou/cu mm 08/26/2023 12:49 PM [facility] ABSOLUTE MONOCYTES 0.7 <0.9 thou/cu mm 08/26/2023 12:49 PM [facility] ABSOLUTE EOSINOPHILS 0.4 <0.5 thou/cu mm 08/26/2023 12:49 PM [facility] ABSOLUTE BASOPHILS 0.0 <0.3 thou/cu mm 08/26/2023 12:49 PM [facility] Blood BLOOD SPECIMEN / Unknown Venipuncture / Unknown 08/26/2023 11:43 AM RN ACUTE CARE 08/26/2023 11:43 AM RN ACUTE CARE Jackson Pink MD HEMATOLOGY [facility] [address] [place] [address] * (ABNORMAL) BASIC METABOLIC PANEL (08/26/2023 11:43 AM RN ACUTE CARE) SODIUM 142 136 - 145 mmol/L 08/26/2023 1:14 PM [facility] POTASSIUM 4.2 3.5 - 5.1 mmol/L 08/26/2023 1:14 PM [facility] CHLORIDE 106 98 - 107 mmol/L 08/26/2023 1:14 PM [facility] CO2,TOTAL 26 22 - 29 mmol/L 08/26/2023 1:14 PM [facility] ANION GAP 10 5 - 18 08/26/2023 1:14 PM [facility] GLUCOSE 97 70 - 99 mg/dL 08/26/2023 1:14 PM [facility] CALCIUM 9.9 8.8 - 10.2 mg/dL 08/26/2023 1:14 PM [facility] BUN 22 8 - 23 mg/dL 08/26/2023 1:14 PM [facility] CREATININE 1.04 0.70 - 1.20 mg/dL 08/26/2023 1:14 PM [facility] BUN/CREAT RATIO 21(H) 10 - 20 1:14 PM [facility] eGFR 76(L) >90 mL/min/1.7 3m2 08/26/2023 1:14 PM [facility] Comment:As of 2021, eG FR is calculated by the CKD-EPI creatinine equation without race adjustment. ??eGFR can be influenced by muscle mass, exercise, and diet. ??The reported eGFR is an estimation only and is only applicable if the renal function is stable. Blood BLOOD SPECIMEN / Unknown Venipuncture / Unknown 08/26/2023 11:43 AM RN ACUTE CARE 08/26/2023 11:43 AM RN ACUTE CARE Jackson Pink MD CHEMISTRY 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
== END 2023-09-26 12:58 | disposition home or self-care (01) ==
PROVIDERS: PCP Family Medicine; Visit Provider Physician Assistant
DX: M79.605 Pain in left leg (principal); M79.89 Other specified soft tissue disorders; G89.18 Other acute postprocedural pain; Z96.652 Presence of left artificial knee joint
CPT/HCPCS: 93971